=== PATIENT | male | born 1960 | race Caucasian/White ===

== ENCOUNTER → 2016-05-02 | Outpatient (CLI) | payer OTHER ==
--- NOTE | 2016-05-02 11:50 | XR ---
Bilateral hands HISTORY: Bilateral hand pain 3 views of the left and 3 views of the right hand submitted on a total of 6 images No comparisons Erosive changes are present at the distal interphalangeal joints especially second and third digits o f the right hand, left hand second and third, fifth digits with associated joint space loss and hyper trophic change. Degenerative changes also present at the proximal interphalangeal joints. Alignment a nd bone mineralization are relatively maintained. IMPRESSION: Findings suggest erosive osteoarthritis.
[2016-05-02 12:02] LABS: Basophils % (A) 1 %; CH 31.8; CHCM 34.5; Eosinophils # (A) 0.1 k/uL (0-0.7); Eosinophils % (A) 2 %; HCT 42.4 % (39.0-53.0); HDW 2.56; HGB 14.3 gm/dL (13.0-17.5); Luc # (Auto) 0.13; Luc % (Auto) 2; Lymphocytes # (A) 1.4 k/uL (1.0-4.8); Lymphocytes % (A) 22 %; MCH 31.3 pg (25.0-35.0); MCHC 33.7 g/dL (31.0-37.0); MCV 92.7 fL (80.0-100.0); Mean Platelet Volume 7.6; Monocytes # (A) 0.4 k/uL (0-1.0); Monocytes % (A) 7 %; Neutrophils # (A) 4.2 k/uL (1.3-7.7); Neutrophils % (A) 66 %; RBC 4.58 m/uL (4.30-5.90); RDW 13.2 % (11.5-15.5); WBC 6.3 k/uL (3.8-10.6); WBC (Perox) 6.69
[2016-05-02 14:14] LABS: C Reactive Protein 5.7 mg/L (<10.0); Creatine Kinase 70 U/L (55-170); Rheumatoid Factor, Qnt <9 IU/mL (<12); Uric Acid 5.1 mg/dL (3.5-8.5)
[2016-05-02 14:35] LABS: Erythrocyte Sedimentation Rate 8 mm/hr (0-15)
[2016-05-02 21:25] LABS: ANA w/Reflex to Titer POSITIVE (NEGATIVE)
== END | disposition home or self-care (01) ==
LOC: LABWHC1 11:05
PROVIDERS: ATTEND Psychiatry & Neurology Pain Medicine
DX: M25.541 Pain in joints of right hand (principal); M25.542 Pain in joints of left hand
CPT/HCPCS: 36415; 82550; 84550; 85025; 85652; 86038; 86039; 86140; 86225; 86334; 86431

== ENCOUNTER → 2016-06-13 | Outpatient (CLI) | payer OTHER ==
[2016-06-14 05:47] LABS: Cyclic Citrullinated Pep IgG 7 UNITS (<20)
== END | disposition home or self-care (01) ==
LOC: LABWHC1 10:10
PROVIDERS: ATTEND Psychiatry & Neurology Pain Medicine
DX: M15.4 Erosive (osteo)arthritis (principal)
CPT/HCPCS: 36415; 86200; 86235

== ENCOUNTER 2016-06-26 00:19 | Observation (INO) | payer OTHER ==
[2016-06-26] MEDS ORDERED: NITROGLYCERIN OINT 1 INCH/GM PACKET TOPICAL STA (00:54)
[2016-06-26] MEDS ORDERED: ASPIRIN 81 MG CHEW PO STA (00:54)
--- NOTE | 2016-06-26 00:58 | ED ---
Chest Pain HPI - General Chief Complaint: Chest Pain Stated Complaint: JACQUELYN Time Seen by Provider: 06/26/16 00:47 Source: patient, family, RN notes reviewed Mode of arrival: EMS Limitations: no limitations - History of Present Illness Initial Comments: Patient is a pleasant 55-year-old male presenting to emergency department complaining of chest discomfort. Onset of symptoms was a few hours ago. Patient has discomfort in his lower chest. Patient does have some associated dyspnea and nausea and diaphoresis. Symptoms have led up and are mild at this time rated 3/10. Patient was recently at [facility] with cardiac evaluation. There was a question of heart failure. did have a reported clean heart cath. Patient states symptoms are somewhat similar. - Related Data Allergies Allergy/AdvReac Type Severity Reaction Status Date / Time Penicillins Allergy Rash/Hives Verified 06/26/16 00:35 Review of Systems ROS Statement: Those systems with pertinent positive or pertinent negative responses have been documented in the HPI. ROS Other: All systems not noted in ROS Statement are negative. Constitutional: Denies: fever Eyes: Denies: eye pain ENT: Denies: ear pain Respiratory: Reports: dyspnea. Denies: cough Cardiovascular: Reports: chest pain Endocrine: Reports: fatigue Gastrointestinal: Denies: abdominal pain Genitourinary: Denies: dysuria Musculoskeletal: Denies: back pain Skin: Denies: rash Neurological: Denies: weakness EKG Findings - EKG Comments: EKG Findings:: Normal sinus rhythm at 86. WV 1:30. QRS 82. QT 376. QTc 449. Normal axis. Nonspecific junctional ST depression. Normal QRS. Past Medical History Past Medical History: Hyperlipidemia, Hypertension History of Any Multi-Drug Resistant Organisms: None Reported Past Psychological History: No Psychological Hx Reported Smoking Status: Never smoker Past Alcohol Use History: Occasional Past Drug Use History: None Reported General Exam Limitations: no limitations General appearance: alert, in no apparent distress Head exam: Present: atraumatic Eye exam: Present: normal appearance, PERRL ENT exam: Present: normal oropharynx Neck exam: Present: normal inspection Respiratory exam: Present: normal lung sounds bilaterally Cardiovascular Exam: Present: regular rate, normal rhythm Expanded Peripheral pulses: 2+: Radial (R), Radial (L), Dorsalis Pedis (R), Dorsalis Pedis (L) GI/Abdominal exam: Present: soft. Absent: tenderness Extremities exam: Present: normal inspection Neurological exam: Present: alert Psychiatric exam: Present: normal affect, normal mood Skin exam: Absent: rash Course Vital Signs 06/26/16 06/26/16 00:30 01:11 Temperature 99.1 F Pulse Rate 86 78 Respiratory 20 20 Rate Blood Pressure 164/90 141/80 O2 Sat by Pulse 100 100 Oximetry - Reevaluation(s) Reevaluation #1: 06/26/16 02:39 Chest x-ray shows no acute process. Computed tomography scan will be ordered secondary to elevation of d-dimer. Patient updated on results and plan. Case discussed in detail with practitioner assistant cross country coach, who will admit for Dr. Tiwari, covering for Dr. Bunn. Patient states he is somewhat further improved. Disposition Clinical Impression: Unstable angina pectoris Disposition: ADMITTED IP TO THIS HOSP
[2016-06-26 01:07] LABS: Basophils # (A) 0.1 k/uL (0-0.2); Basophils % (A) 1 %; CH 32.6; CHCM 35.6; Eosinophils # (A) 0.2 k/uL (0-0.7); Eosinophils % (A) 3 %; HCT 39.4 % (39.0-53.0); HDW 2.66; HGB 13.8 gm/dL (13.0-17.5); Luc # (Auto) 0.32; Luc % (Auto) 4; Lymphocytes # (A) 2.2 k/uL (1.0-4.8); Lymphocytes % (A) 27 %; MCH 32.1 pg (25.0-35.0); MCHC 34.9 g/dL (31.0-37.0); MCV 92.1 fL (80.0-100.0); Mean Platelet Volume 8.4; Monocytes # (A) 0.5 k/uL (0-1.0); Monocytes % (A) 6 %; Neutrophils # (A) 4.9 k/uL (1.3-7.7); Neutrophils % (A) 61 %; RBC 4.28 m/uL (4.30-5.90); RDW 13.1 % (11.5-15.5); WBC 8.1 k/uL (3.8-10.6); WBC (Perox) 8.27
[2016-06-26 01:18] LABS: ALT 37 U/L (21-72); AST 23 U/L (17-59); Alkaline Phosphatase 56 U/L (38-126); Anion Gap 14 mmol/L; Blood Urea Nitrogen 14 mg/dL (9-20); Calcium 9.8 mg/dL (8.4-10.2); Carbon Dioxide 22 mmol/L (22-30); Chloride 104 mmol/L (98-107); Glucose 118 mg/dL (74-99); Magnesium 2.1 mg/dL (1.6-2.3); Non-African American GFR(MDRD) >60 (>60 ml/min/1.73 sqM); Potassium 3.9 mmol/L (3.5-5.1); Sodium 140 mmol/L (137-145); Total Bilirubin 0.9 mg/dL (0.2-1.3); Total Protein 7.4 g/dL (6.3-8.2)
[2016-06-26 01:22] LABS: Partial Thromboplastin Time 25.5 sec (22.0-30.0); Prothrombin Time 10.4 sec (9.0-12.0)
[2016-06-26 01:41] LABS: Creatine Kinase MB 0.3 ng/mL (0.0-2.4); Troponin I 0.014 ng/mL (0.000-0.034)
--- NOTE | 2016-06-26 02:04 | XR ---
EXAM: XR Chest, 2 Views. CLINICAL HISTORY: Reason: Chest Pain TECHNIQUE: Frontal and lateral views of the chest. COMPARISON: No relevant prior studies available. FINDINGS: Lungs: Lungs are clear. Pleural space: Unremarkable. No pneumothorax. Heart: Unremarkable. No cardiomegaly. Mediastinum: Unremarkable. Bones/joints: Unremarkable. IMPRESSION: No evidence of active chest disease.
[2016-06-26] MEDS ORDERED: HEPARIN SODIUM,PORCINE 5,000 UNIT/ML 1 ML VIAL IV ONE (02:40)
[2016-06-26] MEDS ORDERED: HEPARIN SODIUM,PORCINE 5,000 UNIT/ML 1 ML VIAL IV PRN (02:40)
[2016-06-26] MEDS ORDERED: RX INFO: IV CONTRAST WAS GIVEN 1 EACH MISC MISCELLANE PRN (02:40)
[2016-06-26] MEDS ORDERED: NITROGLYCERIN SL TABS 0.4 MG TAB SUBLINGUAL PRN (02:40)
[2016-06-26] MEDS ORDERED: HEPARIN SODIUM,PORCINE/D5W PMX 25,000 UNIT in DEXTROSE/WATER 1 500ML.BAG IV SCH (02:45)
[2016-06-26 04:37] VITALS: BMI 19.2
--- NOTE | 2016-06-26 05:12 | CT ---
EXAM: CT Angiography Chest With Intravenous Contrast. CLINICAL HISTORY: Reason: pe protocol TECHNIQUE: Axial computed tomographic angiography images of the chest with intravenous contrast using pulmonary embolism protocol. CTDI is 57.2 mGy and DLP is 154.2 mGy-cm MIP reconstructed images were created and reviewed. COMPARISON: Chest radiographs 06/26/2016 FINDINGS: Pulmonary arteries: No evidence of pulmonary thromboembolic disease. No evidence of thoracic aortic aneurysm or dissection. Aorta: See above. Lungs: Lungs are clear without focal pulmonary infiltrates or consolidations. Pleural space: No evidence of pleural effusion. No pneumothorax. Heart: Heart size and mediastinal structures are within normal limits. No significant pericardial effusion. No evidence of RV dysfunction. Mediastinum: Probable small hiatal hernia. Soft tissues: Unremarkable. Lymph nodes: Unremarkable. No enlarged lymph nodes. Upper abdomen: Images including upper abdomen are unremarkable. IMPRESSION: No evidence of pulmonary thromboembolic disease. No acute cardiopulmonary process. Probable small hiatal hernia.
[2016-06-26] MEDS: NITROGLYCERIN OINT 1 INCH/GM PACKET TOPICAL SCH ×2 (06:21→11:46)
[2016-06-26 07:46] VITALS: RESP 18
[2016-06-26 08:13] LABS: Mean Platelet Volume 8.1
[2016-06-26 08:35] LABS: Creatine Kinase 34 U/L (55-170)
[2016-06-26 08:49] LABS: Creatine Kinase MB <0.2 ng/mL (0.0-2.4); Troponin I <0.012 ng/mL (0.000-0.034)
[2016-06-26] MEDS ORDERED: IBUPROFEN 400 MG TAB PO PRN (10:34)
[2016-06-26] MEDS ORDERED: METOPROLOL TARTRATE 25 MG TAB PO SCH (10:45)
--- NOTE | 2016-06-26 11:14 | CONS ---
DATE OF CONSULTATION: Mr. Bach is a 55-year-old gentleman, came to the emergency room with the complaint of chest discomfort. Patient started having symptoms about few hours ago prior to coming to the emergency room. The pain was in the lower part of the chest. The patient was associated with slight sweaty and weakness. Patient was recently admitted to the [facility] with symptoms of chest discomfort and palpitations. Patient underwent cardiac catheterization and he was told that he did not have any blockage, but he was told that his heart muscle was weak. Past medical history includes recent cardiac catheterization, hypertension, hyperlipidemia. SOCIAL HISTORY: Patient does not smoke. Alcohol, patient usually has 2 to 3 drinks per day. Review of systems is otherwise unremarkable. Physical examination at present reveals a 55-year-old gentleman who does not appear to be in any acute distress. Patient's blood pressure is 100/63 mmHg. HEENT examination is negative. Neck is supple. There is no increase in jugular venous pressure. Both the carotid pulses are felt. There is no bruit. Chest is symmetrical. HEART: The PMI is not felt. First and second heart sounds are normal. There is no evidence of any murmur. Lungs are clinically clear to auscultation and percussion. Abdomen is soft. Liver and spleen are not enlarged. Bowel sounds are heard. EXTREMITIES: Peripheral pulsations are 2+. EKG shows normal sinus rhythm without any acute ischemic changes. CT of the chest was negative. Patient's proBNP level is 57 and tropes are negative. FINAL IMPRESSION: 1. Atypical anginal pain. 2. History of hyperlipidemia. 3. Hypertension. 4. Recent cardiac catheterization is normal. RECOMMENDATIONS: Continue symptomatic medical therapy. We will do echo and Doppler study. Discontinue heparin and if the echo and Doppler study is normal, patient can be discharged home.
[2016-06-26 11:50] VITALS: BP 125/80; PULSE 87; TEMP 98.6
[2016-06-26] MEDS ORDERED: BACLOFEN 10 MG TAB PO SCH (13:00)
[2016-06-26 13:16] LABS: Creatine Kinase 34 U/L (55-170)
[2016-06-26 13:29] LABS: Creatine Kinase MB <0.2 ng/mL (0.0-2.4); Troponin I <0.012 ng/mL (0.000-0.034)
--- NOTE | 2016-06-26 19:45 | HP ---
DATE OF ADMISSION: THIS DICTATION IS BOTH HP AND DISCHARGE SUMMARY. Patient comes in with chest pressure like sensation which started yesterday after food. Patient had a recent cardiac catheterization for pressure like sensation along with some lightheadedness. Patient had this cardiac catheterization down in [facility] and they did not find any significant stentable atherosclerotic vascular disease. Patient was evaluated by Cardiology. Patient's chest pain is 3/10, constant, pressure like sensation, started after food. Patient had CT angio which did not show any pulmonary embolism or embolic process. Patient appears to have significant episodes of anxiety with palpitations. Patient symptoms are consistent with anxiety. Patient believes ( ) although patient is also found to have hiatal hernia and patient complains of retrosternal pain started after eating food. Because of which I cannot rule out gastroesophageal reflux disease. Because of which I will start him on empiric proton pump inhibitor for 15 days and patient will be discharged. Patient was evaluated by Cardiology and cleared from Cardiology perspective. REVIEW OF SYSTEMS: CONSTITUTIONAL: No fever, no malaise, no fatigue. HEENT: No recent visual problems or hearing problems. Denied any sore throat. CARDIOVASCULAR: As described in HPI. PULMONARY: No shortness of breath, no cough, no hemoptysis. GASTROINTESTINAL: As described HPI. NEUROLOGICAL: No headaches, no weakness, no numbness. HEMATOLOGICAL: Denies any bleeding or petechiae. GENITOURINARY: Denies any burning micturition, frequency, or urgency. MUSCULOSKELETAL/RHEUMATOLOGICAL: Denies any joint pain, swelling, or any muscle pain. ENDOCRINE: Denies any polyuria or polydipsia. The rest of the 14 point review of systems is negative. PAST MEDICAL HISTORY: Hypertension, hyperlipidemia. SOCIAL HISTORY: Denied any smoking, alcohol abuse or any drug abuse. FAMILY HISTORY: Denied any family history of premature coronary artery disease. PHYSICAL EXAMINATION: Temperature 99.1, pulse 78, respiratory rate 16, blood pressure 141/80, saturating at 100% on room air. GENERAL: The patient is alert and oriented x3, not in any acute distress. Well developed, well nourished. HEENT: Pupils are round and equally reacting to light. EOMI. No scleral icterus. No conjunctival pallor. Normocephalic, atraumatic. No pharyngeal erythema. No thyromegaly. CARDIOVASCULAR: S1 and S2 present. No murmurs, rubs, or gallops. PULMONARY: Chest is clear to auscultation, no wheezing or crackles. ABDOMEN: Soft, nontender, nondistended, normoactive bowel sounds. No palpable organomegaly. MUSCULOSKELETAL: No joint swelling or deformity. EXTREMITIES: No cyanosis, clubbing, or pedal edema. NEUROLOGICAL: Gross neurological examination did not reveal any focal deficits. SKIN: No rashes. LABORATORY DATA: CBC and CMP essentially within normal limits. CT angio of the chest as mentioned above. ASSESSMENT AND PLAN: 1. Chest pain, rule out acute coronary syndrome and unstable angina. Patient had a recent cardiac catheterization. Chest pain is mostly related to his anxiety disorder. I will let him follow with Dr. Fermin and address anxiety issue there. I cannot rule out gastroesophageal reflux disease because of the above mentioned reasons. I will go ahead and start him on Prilosec empirically for 14 days and patient will be discharged today. 2. Hyperlipidemia. 3. Hypertension. Patient will be discharged today with 14 days of Prilosec. Follow with Dr. Fermin in 3 to 5 days. Activity as tolerated. Cardiac diet. The rest of the home medications will be continued as it is.
[2016-06-26] MEDS ORDERED: ATORVASTATIN 10 MG TAB PO SCH (21:00)
[2016-06-27] MEDS ORDERED: ASPIRIN 325 MG TAB PO SCH ×2 (09:00)
[2016-06-27] MEDS ORDERED: ASPIRIN 81 MG CHEW PO SCH (09:00)
--- NOTE | 2016-06-27 09:36 | ECHOF ---
Referral Reason:chest pain MEASUREMENTS -------- HEIGHT: 175.3 cm WEIGHT: 59.0 kg BP: RVIDd: 2.4 cm (< 3.3) IVSd: 0.7 cm (0.6 - 1.1) LVIDd: 5.7 cm (3.9 - 5.3) LVPWd: 0.9 cm (0.6 - 1.1) IVSs: 1.1 cm LVIDs: 3.6 cm LVPWs: 1.1 cm LA Diam: 3.1 cm (2.7 - 3.8) LAESV Index (A-L): 25.76 ml/m Ao Diam: 2.8 cm (2.0 - 3.7) AV Cusp: 1.8 cm (1.5 - 2.6) LA Diam: 3.3 cm (2.7 - 3.8) MV EXCURSION: 20.954 mm (> 18.000) MV EF SLOPE: 139 mm/s (70 - 150) EPSS: 0.2 cm MV E Jan: 0.51 m/s MV DecT: 232 ms MV A Jan: 0.66 m/s MV E/A Ratio: 0.77 RAP: 5.00 mmHg RVSP: 20.47 mmHg FINDINGS -------- Sinus rhythm. This was a technically good study. LV size, wall thickness and systolic function are normal, with an EF greater than 55%. The right ventricle is normal in size. Normal LA size by volume 22+/-6 ml/m2. The right atrial size is normal. There is mild aortic valve sclerosis. There is no evidence of aortic regurgitation. Mild mitral annular calcification present. Mild mitral regurgitation is present. Mild tricuspid regurgitation present. There is no evidence of pulmonary hypertension. The right ventricular systolic pressure, as measured by Doppler, is 20.47mmHg. There is no pulmonic regurgitation present. The aortic root size is normal. There is no pericardial effusion. CONCLUSIONS -------- 1. LV size, wall thickness and systolic function are normal, with an EF greater than 55%. 2. There is mild aortic valve sclerosis. 3. Mild mitral annular calcification present. 4. Mild mitral regurgitation is present. 5. Mild tricuspid regurgitation present. 6. There is no evidence of pulmonary hypertension. 7. The right ventricular systolic pressure, as measured by Doppler, is 20.47mmHg. INDUSTRY OPERATIONS INVESTIGATOR: Gloria Wren RDCS
[2016-07-03] MEDS ORDERED: ERGOCALCIFEROL 50,000 UNIT CAP PO SCH (09:00)
== END 2016-06-26 15:35 | disposition home or self-care (01) ==
LOC: EC 00:19 → 3OBS 02:40
PROVIDERS: ADMIT Hospitalist; ATTEND Hospitalist
DX: R07.89 Other chest pain (principal); E78.5 Hyperlipidemia, unspecified; I10 Essential (primary) hypertension; F41.9 Anxiety disorder, unspecified; K44.9 Diaphragmatic hernia without obstruction or gangrene; R42 Dizziness and giddiness; R00.2 Palpitations; R53.1 Weakness; R61 Generalized hyperhidrosis; R06.00 Dyspnea, unspecified; R11.0 Nausea; Z88.0 Allergy status to penicillin
CPT/HCPCS: 36415; 93005; 93306; 85379; 83880; 80053; 82550; 82553; 83735; 84484; 85025; 85049; 85610; 85730; 71020; 71275; 99285; 96365; 96376; G0378; J1644 ×2; Q9967; 96366

== ENCOUNTER 2016-06-29 09:37 | Emergency (ER) | payer OTHER ==
[2016-06-29 09:52] VITALS: BP 109/54; PULSE 66; RESP 20; TEMP 97.6
--- NOTE | 2016-06-29 10:07 | ED ---
Upper Extremity HPI - General Chief Complaint: Extremity Injury, Upper Stated Complaint: POST OP PROBLEM, LUMP ON ARM AFTER CATH Source: patient Mode of arrival: ambulatory Limitations: no limitations - History of Present Illness Initial Comments: Patient is a pleasant 55-year-old male who presents for evaluation after he developed a bump on his right wrist after hitting it on a wooden table. Past medical history as below. Patient is concerned because he recently had a right radial artery heart catheterization at an outside facility roughly 6 days ago. He was told to come to the emergency department immediately if there is any swelling to the access site. Patient stated that he hit his right wrist ( lateral aspect) on a wooden table. This occurred roughly 30 minutes prior to arrival. His full range of motion to the right wrist. He noticed that it swelled up quite quickly but is otherwise seems stable since the injury. States that he is otherwise doing well. He recently followed up with a primary care physician and has new medications addressing his anxiety. He currently denies fever, chills, headache, changes in vision, URI symptoms, shortness breath, cough, chest pain, nausea, vomiting, diarrhea, pain or burning with urination. - Related Data Home Medications Medication Instructions Recorded Confirmed Aspirin [Adult Low Dose Aspirin EC] 81 mg PO DAILY 06/26/16 06/26/16 Atorvastatin [Lipitor] 10 mg PO HS 06/26/16 06/26/16 Baclofen [Lioresal] 10 mg PO QID 06/26/16 06/26/16 Ergocalciferol (Vitamin D2) 1 cap PO WEEKLY 06/26/16 06/26/16 [Vitamin D2] Ketoprofen [Orudis] 50 mg PO TID PRN 06/26/16 06/26/16 Metoprolol Tartrate [Lopressor] 25 mg PO BID 06/26/16 06/26/16 Previous Rx's Medication Instructions Recorded Omeprazole [PriLOSEC] 40 mg PO -BRKFST #14 capsule. 06/26/16 Allergies Allergy/AdvReac Type Severity Reaction Status Date / Time Penicillins Allergy Rash/Hives Verified 06/29/16 09:51 Review of Systems ROS Statement: Those systems with pertinent positive or pertinent negative responses have been documented in the HPI. ROS Other: All systems not noted in ROS Statement are negative. Past Medical History Past Medical History: Heart Failure, Hyperlipidemia, Hypertension Additional Past Medical History / Comment(s): tobi hand arthritis requiring pain injections, hemmorhoids History of Any Multi-Drug Resistant Organisms: None Reported Past Surgical History: Heart Catheterization Additional Past Surgical History / Comment(s): hemmroidectomy Past Anesthesia/Blood Transfusion Reactions: No Reported Reaction Past Psychological History: Anxiety Smoking Status: Never smoker Past Alcohol Use History: Occasional Past Drug Use History: None Reported - Past Family History Father Additional Family Medical History / Comment(s): parkinsons General Exam Limitations: no limitations General appearance: alert, in no apparent distress Head exam: Present: atraumatic, normocephalic, normal inspection Eye exam: Present: normal appearance, PERRL, EOMI. Absent: scleral icterus, conjunctival injection, periorbital swelling ENT exam: Present: normal exam, mucous membranes moist Neck exam: Present: normal inspection. Absent: tenderness, meningismus, lymphadenopathy Respiratory exam: Present: normal lung sounds bilaterally. Absent: respiratory distress, wheezes, rales, rhonchi, stridor Cardiovascular Exam: Present: regular rate, normal rhythm, normal heart sounds, other (Distal radial pulse intact with palpation. Good cap refill of his right hand. There is a soft tissue mass lateral to the radial artery puncture site. There is no bruit auscultated over this soft tissue mass. It is relatively firm and nonfluctuant. No overlying cellulitis or laceration or abrasion.). Absent: systolic murmur, diastolic murmur, rubs, gallop, clicks GI/Abdominal exam: Present: soft, normal bowel sounds. Absent: distended, tenderness, guarding, rebound, rigid Extremities exam: Present: normal inspection, full ROM, normal capillary refill. Absent: tenderness, pedal edema, joint swelling, calf tenderness Back exam: Present: normal inspection Neurological exam: Present: alert, oriented X3, CN II-XII intact Psychiatric exam: Present: normal affect, normal mood Skin exam: Present: warm, dry, intact, normal color. Absent: rash Course Vital Signs 06/29/16 09:47 Temperature 97.6 F Pulse Rate 66 Respiratory 20 Rate Blood Pressure 109/54 O2 Sat by Pulse 99 Oximetry Medical Decision Making - Medical Decision Making Patient is a 55-year-old male who presents for evaluation after soft tissue swelling after trauma to his right wrist. Concerned because he had a recent heart catheterization at the right radial site. We'll order an ultrasound arterial to the right extremity to exclude aneurysm. 1102: Arterial ultrasound of the right upper extremity revealed no pseudoaneurysm at the site of soft tissue swelling. Noted to be a limited study. Stable for discharge home and follow-up with his multimedia manager/primary care physician in the next 24 hours. Encourage the patient watch the swelling closely. Will return immediately if he noticed that it is significantly worsening swelling, numbness or tingling to his fingertips or hands. Otherwise will take Tylenol Motrin as needed for pain. Icing to the affected area. He is comfortable with discharge home and will follow-up with his primary care physician and/or multimedia manager in the next 24 hours. Disposition Clinical Impression: Contusion of wrist, right Disposition: HOME SELF-CARE Condition: Good Instructions: Wrist Injury (ED) Referrals: Shmuel Fermin MD [Primary Care Provider] - 1-2 days
--- NOTE | 2016-06-29 10:49 | US ---
EXAMINATION TYPE: US duplex arterial venous darling DATE OF EXAM: 06/29/2016 10:30 AM COMPARISON: NONE CLINICAL HISTORY: Pain. Patient had a radial approach cauterization done a6 days ago and has a red ra ised area lateral right wrist. Order states concern for pseudoaneurysm. Grayscale, color Doppler, spectral Doppler imaging performed at the site of patient's palpable abnorm ality, symptomatology TECHNOLOGIST IMPRESSION: Scanned right wrist, right radial artery and red raised lump on the right l ateral wrist. Radial artery is patent, there is no ultrasound evidence for pseudoaneurysm. There is no fluid collection seen over red raised area. Normal vascular waveforms, triphasic waveform within the radial artery, superior aneurysm is not evid ent. Soft tissue swelling is present. No evident abnormal fluid collection. IMPRESSION: Limited exam for evaluation of pseudoaneurysm. No pseudoaneurysm is evident at the site of patient's symptomatology.
== END 2016-06-29 11:12 | disposition home or self-care (01) ==
LOC: EC 09:37
DX: S60.211A Contusion of right wrist, initial encounter (principal); M79.89 Other specified soft tissue disorders; E78.5 Hyperlipidemia, unspecified; I11.0 Hypertensive heart disease with heart failure; I50.9 Heart failure, unspecified; Z98.890 Other specified postprocedural states; Z88.0 Allergy status to penicillin; Z79.82 Long term (current) use of aspirin; Z79.899 Other long term (current) drug therapy; W22.8XXA Striking against or struck by other objects, initial encounter
CPT/HCPCS: 93976; 99283

== ENCOUNTER 2016-06-30 12:45 | Emergency (ER) | payer OTHER ==
[2016-06-30 12:53] VITALS: RESP 18
[2016-06-30] MEDS ORDERED: ASPIRIN 81 MG CHEW PO STA (12:59)
--- NOTE | 2016-06-30 13:03 | ED ---
Dizziness HPI - General Chief Complaint: Dizziness Stated Complaint: Chest pain Time Seen by Provider: 06/30/16 12:47 Source: patient, EMS Mode of arrival: EMS Limitations: no limitations - History of Present Illness Initial Comments: Patient is a 55-year-old male presenting with dizziness. Patient states he woke up this morning with this uneasy feeling. Patient denies lightheadedness, disequilibrium. Denies symptoms worsen with head movement or position changes. Patient weighs of chest tightness which has been present for more than a week now. Patient states he had a cardiac cath last week which was unremarkable. Patient states he went to [facility] having a unremarkable cardiac cath. Patient states he was diagnosed with unstable angina. Patient denies fever, chills, stress breath, nausea, vomiting, diarrhea, abdominal pain, dysuria. Patient denies trouble talking or swallowing. Patient denies any numbness or weakness. - Related Data Home Medications Medication Instructions Recorded Confirmed Aspirin [Adult Low Dose Aspirin EC] 81 mg PO DAILY 06/26/16 06/30/16 Atorvastatin [Lipitor] 10 mg PO HS 06/26/16 06/30/16 Baclofen [Lioresal] 10 mg PO QID 06/26/16 06/30/16 Metoprolol Tartrate [Lopressor] 25 mg PO BID 06/26/16 06/30/16 cloNIDine HCL [Catapres] 0.1 mg PO BID 06/30/16 06/30/16 Previous Rx's Medication Instructions Recorded Omeprazole [PriLOSEC] 40 mg PO AC-BRKFST #14 capsule. 06/26/16 Allergies Allergy/AdvReac Type Severity Reaction Status Date / Time Penicillins Allergy Rash/Hives Verified 06/30/16 14:41 Review of Systems ROS Statement: Those systems with pertinent positive or pertinent negative responses have been documented in the HPI. Constitutional: No fever and no chills. HENT: No congestion, no rhinorrhea and no sore throat. Eyes: No discharge and no redness. Respiratory: No cough and no shortness of breath. Cardiovascular: +chest pain and no palpitations. Gastrointestinal: No nausea, no vomiting, no abdominal pain and no diarrhea. Genitourinary: No dysuria and no hematuria. Musculoskeletal: No back pain and no arthralgias. Skin: No pallor and no rash. Neurological: +dizziness and No headaches. ROS Other: All systems not noted in ROS Statement are negative. Past Medical History Past Medical History: Heart Failure, Hyperlipidemia, Hypertension Additional Past Medical History / Comment(s): tobi hand arthritis requiring pain injections, hemmorhoids History of Any Multi-Drug Resistant Organisms: None Reported Past Surgical History: Heart Catheterization Additional Past Surgical History / Comment(s): hemmroidectomy Past Anesthesia/Blood Transfusion Reactions: No Reported Reaction Past Psychological History: Anxiety Smoking Status: Never smoker Past Alcohol Use History: Heavy Past Drug Use History: Marijuana - Past Family History Father Additional Family Medical History / Comment(s): parkinsons General Exam - General Exam Comments Initial Comments: Constitutional: Patient appears well-developed and well-nourished. No distress. Anxious appearing. Head: Normocephalic and atraumatic. Eyes: Conjunctivae and EOM are normal. Right eye exhibits no discharge. Left eye exhibits no discharge. No scleral icterus. Neck: Normal range of motion. Neck supple. Cardiovascular: Normal rate and regular rhythm. No murmur heard. Pulmonary/Chest: Effort normal and breath sounds normal. No respiratory distress. No wheezes. Abdominal: Soft. No distension. There is no tenderness. There is no rebound and no guarding. Musculoskeletal: Right wrist bruising and puncture from cardiac cath. Normal range of motion. No edema or tenderness. Neuro Exam: A&Ox3, speech is fluent and spontaneous CN 2: no visual field deficits, PERRL CN 3, 4, 6: EOMI CN 5: facial sensation intact b/l CN 7: Eyebrow raise and smile equal b/l CN 8: hearing intact to conversation CN 9, 10: palate elevation equal, no hoarseness to voice CN 11: shoulder shrug equal b/l CN 12: tongue protrusion w/o deviation Sensory: Intact to light touch, upper and lower extremities Motor: No pronator drift, no atrophy, normal muscle tone, b/l muscle strength 5/ 5 of hand flexors, biceps, triceps, quads, hamstrings, plantar and dorsiflexion Cerebellar: finger to nose intact b/l, heel to [place] intact b/l. Skin: Skin is warm and dry. Not diaphoretic. Nursing notes and vitals reviewed. Limitations: no limitations Course Vital Signs 06/30/16 06/30/16 06/30/16 12:50 15:35 16:49 Temperature 99.0 F 98.4 F Pulse Rate 66 56 L 59 L Respiratory 18 18 18 Rate Blood Pressure 143/91 101/72 132/80 O2 Sat by Pulse 99 99 99 Oximetry - Reevaluation(s) Reevaluation #1: 06/30/16 16:38 Patient resting comfortable in bed. After negative workup. Patient with positive d-dimer but later realized that patient had a negative CTA 4 days ago. Unlikely dizziness related to PE. EKG Findings - EKG Comments: EKG Findings:: Rate 54. Sinus bradycardia. No ST-T wave changes. [place] internal normal . QRS interval normal. QTc duration normal. Medical Decision Making - Medical Decision Making Patient is a 55-year-old male presenting was generalized dizziness and fatigue. Patient with chronic chest pain. Patient with multiple stressors in his life wondering if he should talk to a counselor. Patient with normal exam including neurological exam. EKG shows a sinus bradycardia with a rate of 54. CBC, BMP unremarkable. D-dimer was elevated at 1.59 but later study shows that 4 days prior he had a CTA. UA unremarkable. Chest x-ray unremarkable. Patient updated results and reassured. Patient stable to follow up outpatient with his PCP. Prior to discharge, patient was resting comfortably in bed. Course of stay improved. Denies pain. Discussed physical exam and diagnostic tests with patient. Questions answered and patient is agreeable to discharge with close follow up with Primary Care Physician. Instructed to return to Emergency Department if symptoms worsen. - Lab Data Result diagrams: 06/30/16 13:04 06/30/16 13:04 Lab Results 06/30/16 06/30/16 06/30/16 Range/Units 13:04 13:04 13:04 WBC 9.3 (3.8-10.6) k/uL RBC 4.46 (4.30-5.90) m/uL Hgb 13.9 (13.0-17.5) gm/dL Hct 41.3 (39.0-53.0) % MCV 92.6 (80.0-100.0) fL MCH 31.2 (25.0-35.0) pg MCHC 33.7 (31.0-37.0) g/dL RDW 13.2 (11.5-15.5) % Plt Count 199 (150-450) k/uL Neutrophils % 75 % Lymphocytes % 16 % Monocytes % 5 % Eosinophils % 2 % Basophils % 1 % Neutrophils # 7.0 (1.3-7.7) k/uL Lymphocytes # 1.5 (1.0-4.8) k/uL Monocytes # 0.4 (0-1.0) k/uL Eosinophils # 0.2 (0-0.7) k/uL Basophils # 0.0 (0-0.2) k/uL PT (9.0-12.0) sec INR (<1.1) APTT (22.0-30.0) sec D-Dimer (<0.60) mg/L FEU Sodium 142 (137-145) mmol/L Potassium 4.1 (3.5-5.1) mmol/L Chloride 103 (98-107) mmol/L Carbon Dioxide 26 (22-30) mmol/L Anion Gap 13 mmol/L BUN 14 (9-20) mg/dL Creatinine 0.92 (0.66-1.25) mg/dL Est GFR (MDRD) Af Amer >60 (>60 ml/min/1.73 sqM) Est GFR (MDRD) Non-Af >60 (>60 ml/min/1.73 sqM) Glucose 100 H (74-99) mg/dL Calcium 9.9 (8.4-10.2) mg/dL Magnesium 2.1 (1.6-2.3) mg/dL Total Bilirubin 0.8 (0.2-1.3) mg/dL AST 17 (17-59) U/L ALT 27 (21-72) U/L Alkaline Phosphatase 48 (38-126) U/L Troponin I (0.000-0.034) ng/mL Total Protein 7.4 (6.3-8.2) g/dL Albumin 4.4 (3.5-5.0) g/dL Lipase 140 (23-300) U/L Urine Color Urine Appearance (Clear) Urine pH (5.0-8.0) Ur Specific [place] (1.001-1.035) Urine Protein (Negative) Urine Glucose (UA) (Negative) Urine Ketones (Negative) Urine Blood (Negative) Urine Nitrite (Negative) Urine Bilirubin (Negative) Urine Urobilinogen (<2.0) mg/dL Ur Leukocyte Esterase (Negative) Urine RBC (0-5) /hpf Urine WBC (0-5) /hpf Urine Bacteria (None) /hpf Urine Mucus (None) /hpf Urine Opiates Screen (NotDetected) Ur Oxycodone Screen (NotDetected) Urine Methadone Screen (NotDetected) Ur Propoxyphene Screen (NotDetected) Ur Barbiturates Screen (NotDetected) U Tricyclic Antidepress (NotDetected) Ur Phencyclidine Scrn (NotDetected) Ur Amphetamines Screen (NotDetected) U Methamphetamines Scrn (NotDetected) U Benzodiazepines Scrn (NotDetected) Urine Cocaine Screen (NotDetected) U Marijuana (THC) Screen (NotDetected) 06/30/16 06/30/16 06/30/16 Range/Units 13:04 13:04 13:04 WBC (3.8-10.6) k/uL RBC (4.30-5.90) m/uL Hgb (13.0-17.5) gm/dL Hct (39.0-53.0) % MCV (80.0-100.0) fL MCH (25.0-35.0) pg MCHC (31.0-37.0) g/dL RDW (11.5-15.5) % Plt Count (150-450) k/uL Neutrophils % % Lymphocytes % % Monocytes % % Eosinophils % % Basophils % % Neutrophils # (1.3-7.7) k/uL Lymphocytes # (1.0-4.8) k/uL Monocytes # (0-1.0) k/uL Eosinophils # (0-0.7) k/uL Basophils # (0-0.2) k/uL PT 10.7 (9.0-12.0) sec INR 1.1 (<1.1) APTT 25.1 (22.0-30.0) sec D-Dimer 1.59 H (<0.60) mg/L FEU Sodium (137-145) mmol/L Potassium (3.5-5.1) mmol/L Chloride (98-107) mmol/L Carbon Dioxide (22-30) mmol/L Anion Gap mmol/L BUN (9-20) mg/dL Creatinine (0.66-1.25) mg/dL Est GFR (MDRD) Af Amer (>60 ml/min/1.73 sqM) Est GFR (MDRD) Non-Af (>60 ml/min/1.73 sqM) Glucose (74-99) mg/dL Calcium (8.4-10.2) mg/dL Magnesium (1.6-2.3) mg/dL Total Bilirubin (0.2-1.3) mg/dL AST (17-59) U/L ALT (21-72) U/L Alkaline Phosphatase (38-126) U/L Troponin I <0.012 (0.000-0.034) ng/mL Total Protein (6.3-8.2) g/dL Albumin (3.5-5.0) g/dL Lipase (23-300) U/L Urine Color Urine Appearance (Clear) Urine pH (5.0-8.0) Ur Specific [place] (1.001-1.035) Urine Protein (Negative) Urine Glucose (UA) (Negative) Urine Ketones (Negative) Urine Blood (Negative) Urine Nitrite (Negative) Urine Bilirubin (Negative) Urine Urobilinogen (<2.0) mg/dL Ur Leukocyte Esterase (Negative) Urine RBC (0-5) /hpf Urine WBC (0-5) /hpf Urine Bacteria (None) /hpf Urine Mucus (None) /hpf Urine Opiates Screen (NotDetected) Ur Oxycodone Screen (NotDetected) Urine Methadone Screen (NotDetected) Ur Propoxyphene Screen (NotDetected) Ur Barbiturates Screen (NotDetected) U Tricyclic Antidepress (NotDetected) Ur Phencyclidine Scrn (NotDetected) Ur Amphetamines Screen (NotDetected) U Methamphetamines Scrn (NotDetected) U Benzodiazepines Scrn (NotDetected) Urine Cocaine Screen (NotDetected) U Marijuana (THC) Screen (NotDetected) 06/30/16 Range/Units 15:32 WBC (3.8-10.6) k/uL RBC (4.30-5.90) m/uL Hgb (13.0-17.5) gm/dL Hct (39.0-53.0) % MCV (80.0-100.0) fL MCH (25.0-35.0) pg MCHC (31.0-37.0) g/dL RDW (11.5-15.5) % Plt Count (150-450) k/uL Neutrophils % % Lymphocytes % % Monocytes % % Eosinophils % % Basophils % % Neutrophils # (1.3-7.7) k/uL Lymphocytes # (1.0-4.8) k/uL Monocytes # (0-1.0) k/uL Eosinophils # (0-0.7) k/uL Basophils # (0-0.2) k/uL PT (9.0-12.0) sec INR (<1.1) APTT (22.0-30.0) sec D-Dimer (<0.60) mg/L FEU Sodium (137-145) mmol/L Potassium (3.5-5.1) mmol/L Chloride (98-107) mmol/L Carbon Dioxide (22-30) mmol/L Anion Gap mmol/L BUN (9-20) mg/dL Creatinine (0.66-1.25) mg/dL Est GFR (MDRD) Af Amer (>60 ml/min/1.73 sqM) Est GFR (MDRD) Non-Af (>60 ml/min/1.73 sqM) Glucose (74-99) mg/dL Calcium (8.4-10.2) mg/dL Magnesium (1.6-2.3) mg/dL Total Bilirubin (0.2-1.3) mg/dL AST (17-59) U/L ALT (21-72) U/L Alkaline Phosphatase (38-126) U/L Troponin I (0.000-0.034) ng/mL Total Protein (6.3-8.2) g/dL Albumin (3.5-5.0) g/dL Lipase (23-300) U/L Urine Color Yellow Urine Appearance Clear (Clear) Urine pH 6.5 (5.0-8.0) Ur Specific [place] 1.012 (1.001-1.035) Urine Protein Negative (Negative) Urine Glucose (UA) Negative (Negative) Urine Ketones Trace H (Negative) Urine Blood Trace H (Negative) Urine Nitrite Negative (Negative) Urine Bilirubin Negative (Negative) Urine Urobilinogen <2.0 (<2.0) mg/dL Ur Leukocyte Esterase Negative (Negative) Urine RBC 4 (0-5) /hpf Urine WBC <1 (0-5) /hpf Urine Bacteria Rare H (None) /hpf Urine Mucus Rare H (None) /hpf Urine Opiates Screen Not Detected (NotDetected) Ur Oxycodone Screen Not Detected (NotDetected) Urine Methadone Screen Not Detected (NotDetected) Ur Propoxyphene Screen Not Detected (NotDetected) Ur Barbiturates Screen Not Detected (NotDetected) U Tricyclic Antidepress Not Detected (NotDetected) Ur Phencyclidine Scrn Not Detected (NotDetected) Ur Amphetamines Screen Not Detected (NotDetected) U Methamphetamines Scrn Not Detected (NotDetected) U Benzodiazepines Scrn Not Detected (NotDetected) Urine Cocaine Screen Not Detected (NotDetected) U Marijuana (THC) Screen Detected H (NotDetected) Disposition Clinical Impression: Dizziness, Mood disorder, Chest pain Disposition: HOME SELF-CARE Condition: Good Instructions: Dizziness (ED) Referrals: Shmuel Fermin MD [Primary Care Provider] - 1-2 days
[2016-06-30 13:19] LABS: Basophils % (A) 1 %; CH 32.2; Eosinophils # (A) 0.2 k/uL (0-0.7); Eosinophils % (A) 2 %; HCT 41.3 % (39.0-53.0); HDW 2.62; HGB 13.9 gm/dL (13.0-17.5); Luc # (Auto) 0.19; Luc % (Auto) 2; Lymphocytes # (A) 1.5 k/uL (1.0-4.8); Lymphocytes % (A) 16 %; MCH 31.2 pg (25.0-35.0); MCHC 33.7 g/dL (31.0-37.0); MCV 92.6 fL (80.0-100.0); Mean Platelet Volume 7.5; Monocytes # (A) 0.4 k/uL (0-1.0); Monocytes % (A) 5 %; Neutrophils % (A) 75 %; RBC 4.46 m/uL (4.30-5.90); RDW 13.2 % (11.5-15.5); WBC 9.3 k/uL (3.8-10.6); WBC (Perox) 9.58
[2016-06-30 13:27] LABS: INR 1.1 (<1.1); Prothrombin Time 10.7 sec (9.0-12.0)
[2016-06-30 13:28] LABS: Partial Thromboplastin Time 25.1 sec (22.0-30.0)
[2016-06-30 13:29] LABS: ALT 27 U/L (21-72); AST 17 U/L (17-59); Alkaline Phosphatase 48 U/L (38-126); Anion Gap 13 mmol/L; Blood Urea Nitrogen 14 mg/dL (9-20); Calcium 9.9 mg/dL (8.4-10.2); Carbon Dioxide 26 mmol/L (22-30); Chloride 103 mmol/L (98-107); Glucose 100 mg/dL (74-99); Non-African American GFR(MDRD) >60 (>60 ml/min/1.73 sqM); Potassium 4.1 mmol/L (3.5-5.1); Sodium 142 mmol/L (137-145); Total Bilirubin 0.8 mg/dL (0.2-1.3); Total Protein 7.4 g/dL (6.3-8.2)
--- NOTE | 2016-06-30 14:48 | XR ---
EXAMINATION TYPE: XR chest 1V portable DATE OF EXAM: 06/30/2016 2:37 PM COMPARISON: Chest x-ray and CTA chest report from 4 days ago. HISTORY: Chest pain. TECHNIQUE: Single AP portable frontal upright view of the chest is obtained. FINDINGS: There is no focal air space opacity, pleural effusion, or pneumothorax seen. The cardiac silhouette size is within normal limits. The osseous structures are intact. IMPRESSION: No acute process. No significant change from prior.
[2016-06-30 15:49] LABS: Appearance,Urine Clear (Clear); Bacteria,Urine Rare /hpf; Bilirubin,Urine Negative (Negative); Glucose,Urine (UA) Negative (Negative); Ketones,Urine Trace (Negative); Leukocyte Esterase,Urine Negative (Negative); Mucus,Urine Rare /hpf; Nitrite,Urine Negative (Negative); PH, Urine 6.5 (5.0-8.0); Particle Count 815; Protein,Urine Negative (Negative); RBC,Urine 4 /hpf (0-5); Specific Gravity,Urine 1.012 (1.001-1.035); UA Billing (MACRO vs. MICRO) MICRO; Urobilinogen,Urine <2.0 mg/dL (<2.0); WBC,Urine <1 /hpf (0-5)
[2016-06-30] MEDS ORDERED: RX INFO: IV CONTRAST WAS GIVEN 1 EACH MISC MISCELLANE PRN (16:08)
[2016-06-30 16:52] VITALS: BP 132/80; PULSE 59; TEMP 98.4
== END 2016-06-30 16:49 | disposition home or self-care (01) ==
LOC: EC 12:45
DX: R42 Dizziness and giddiness (principal); R07.9 Chest pain, unspecified; G89.29 Other chronic pain; F39 Unspecified mood [affective] disorder; R00.1 Bradycardia, unspecified; I11.0 Hypertensive heart disease with heart failure; I50.9 Heart failure, unspecified; E78.5 Hyperlipidemia, unspecified; Z88.0 Allergy status to penicillin; Z98.890 Other specified postprocedural states; Z79.82 Long term (current) use of aspirin; Z79.899 Other long term (current) drug therapy
CPT/HCPCS: 36415; 71010; 80053; 80306; 81001; 83690; 83735; 84484; 85025; 85379; 85610; 85730; 93005; 99285

== ENCOUNTER 2016-07-15 13:39 | Emergency (ER) | payer OTHER ==
--- NOTE | 2016-07-15 15:56 | ED ---
General Adult HPI - General Chief complaint: Chest Pain Stated complaint: Mental Health Time Seen by Provider: 07/15/16 15:17 Source: patient, RN notes reviewed Mode of arrival: ambulatory Limitations: no limitations - History of Present Illness Initial comments: Patient is 55-year-old male who presents emergency room today with a chief complaint of chest pain. Patient does admit that he was out walking approximately 4 hours ago when he began experiencing some chest discomfort. He does admit that he has a history of angina has a chronic amount of chest pain but was increased. He states it lasted approximately 20-30 minutes. States she 's been sitting here in the emergency room waiting in the waiting room fell asleep. States he is feeling better has no chest pain at this time other than his usual chronic pain. Does admit that he was seen here in the hospital and admitted approximately 3 weeks ago for similar symptoms and had seen cardiology for this. Patient does admit that he was discharged home with a diagnosis of angina, anxiety, episodic mood disorder. He states he started medications. He states he was taking Ativan 1 pill 1 mg for 10 days. He states this seemed to help the symptoms. He states he run out of this medication over the last 4 days. He states it has been more stressful the last 4 days with his girlfriend recently admitted to the hospital in the critical care unit. Patient denies any other complaints or symptoms currently. Patient denies any recent fever, chills, back pain, abdominal pain, nausea or vomiting, numbness or tingling, dysuria or hematuria, constipation or diarrhea, headaches or visual changes, or any other complaints. - Related Data Home Medications Medication Instructions Recorded Confirmed Aspirin [Adult Low Dose Aspirin EC] 81 mg PO DAILY 06/26/16 07/15/16 Atorvastatin [Lipitor] 10 mg PO HS 06/26/16 07/15/16 Baclofen [Lioresal] 10 mg PO QID 06/26/16 07/15/16 Metoprolol Tartrate [Lopressor] 25 mg PO BID 06/26/16 07/15/16 cloNIDine HCL [Catapres] 0.1 mg PO BID 06/30/16 07/15/16 LORazepam [Ativan] 1 mg PO BID PRN 07/15/16 07/15/16 Previous Rx's Medication Instructions Recorded Omeprazole [PriLOSEC] 40 mg PO -BRKFST #14 capsule. 06/26/16 LORazepam [Ativan] 1 mg PO BID #6 tab 07/15/16 Allergies Allergy/AdvReac Type Severity Reaction Status Date / Time Penicillins Allergy Rash/Hives Verified 07/15/16 16:10 Review of Systems ROS Statement: Those systems with pertinent positive or pertinent negative responses have been documented in the HPI. ROS Other: All systems not noted in ROS Statement are negative. Past Medical History Past Medical History: Heart Failure, Hyperlipidemia, Hypertension Additional Past Medical History / Comment(s): tobi hand arthritis requiring pain injections, hemmorhoids History of Any Multi-Drug Resistant Organisms: None Reported Past Surgical History: Heart Catheterization Additional Past Surgical History / Comment(s): hemmroidectomy Past Anesthesia/Blood Transfusion Reactions: No Reported Reaction Past Psychological History: Anxiety Smoking Status: Never smoker Past Alcohol Use History: None Reported Past Drug Use History: Marijuana - Past Family History Father Additional Family Medical History / Comment(s): parkinsons General Exam - General Exam Comments Initial Comments: General: The patient is awake and alert, in no distress, and does not appear acutely ill. Eye: Pupils are equal, round and reactive to light, extra-ocular movements are intact. No nystagmus. There is normal conjunctiva bilaterally. No signs of icterus. Ears, nose, mouth and throat: There are moist mucous membranes and no oral lesions. Neck: The neck is supple, there is no tenderness or JVD. Cardiovascular: There is a regular rate and rhythm. No murmur, rub or gallop is appreciated. Respiratory: Lungs are clear to auscultation, respirations are non-labored, breath sounds are equal. No wheezes, stridor, rales, or rhonchi. Gastrointestinal: Soft, non-distended, non-tender abdomen without masses or organomegaly noted. There is no rebound or guarding present. No CVA tenderness. Bowel sounds are unremarkable. Musculoskeletal: Normal ROM, no tenderness. Strength 5/5. Sensation intact. Pulses equal bilaterally 2+. Neurological: A&O x 3. CN II-XII intact, There are no obvious motor or sensory deficits. Coordination appears grossly intact. Speech is normal. Skin: Skin is warm and dry and no rashes or lesions are noted. Psychiatric: Cooperative, appropriate mood & affect, normal judgment. Limitations: no limitations Course Vital Signs 07/15/16 07/15/16 13:46 17:07 Temperature 97.5 F L 97.2 F L Pulse Rate 78 68 Respiratory 18 18 Rate Blood Pressure 127/88 104/62 O2 Sat by Pulse 99 99 Oximetry EKG Findings - EKG Comments: EKG Findings:: EKG performed at 1402: A 12-lead EKG was performed and interpreted by me as showing the following: Rate is 62, and rhythm is normal sinus. There are normal QRS complexes and normal R-wave progression. ST segments have no elevation or depression, and IA segments appear normal. Medical Decision Making - Medical Decision Making Patient reexamined at this time shows no signs of distress. His EKG shows normal sinus rhythm. His labs been reviewed and negative cardiac enzymes. Patient did have recent admission to the hospital just 3 weeks ago with her cough and echocardiogram. Patient states she does have an appointment with cardiology in 2 days. Options were discussed with patient permission today for further evaluation. He states that at this time" being discharged home. She will be given a short prescription of Ativan for symptoms. He is advised return to emergency room symptoms increase or worsen - Lab Data Result diagrams: 07/15/16 15:40 07/15/16 15:40 Lab Results 07/15/16 07/15/16 07/15/16 Range/Units 15:40 15:40 15:40 WBC 10.1 (3.8-10.6) k/uL RBC 4.41 (4.30-5.90) m/uL Hgb 14.1 (13.0-17.5) gm/dL Hct 39.4 (39.0-53.0) % MCV 89.5 (80.0-100.0) fL MCH 32.1 (25.0-35.0) pg MCHC 35.9 (31.0-37.0) g/dL RDW 13.0 (11.5-15.5) % Plt Count 172 (150-450) k/uL Neutrophils % 76 % Lymphocytes % 15 % Monocytes % 5 % Eosinophils % 1 % Basophils % 0 % Neutrophils # 7.6 (1.3-7.7) k/uL Lymphocytes # 1.6 (1.0-4.8) k/uL Monocytes # 0.5 (0-1.0) k/uL Eosinophils # 0.1 (0-0.7) k/uL Basophils # 0.0 (0-0.2) k/uL PT (9.0-12.0) sec INR (<1.1) APTT (22.0-30.0) sec Sodium 143 (137-145) mmol/L Potassium 4.3 (3.5-5.1) mmol/L Chloride 104 (98-107) mmol/L Carbon Dioxide 27 (22-30) mmol/L Anion Gap 12 mmol/L BUN 14 (9-20) mg/dL Creatinine 0.80 (0.66-1.25) mg/dL Est GFR (MDRD) Af Amer >60 (>60 ml/min/1.73 sqM) Est GFR (MDRD) Non-Af >60 (>60 ml/min/1.73 sqM) Glucose 124 H (74-99) mg/dL Calcium 9.7 (8.4-10.2) mg/dL Magnesium 1.9 (1.6-2.3) mg/dL Total Bilirubin 0.9 (0.2-1.3) mg/dL AST 26 (17-59) U/L ALT 42 (21-72) U/L Alkaline Phosphatase 50 (38-126) U/L Total Creatine Kinase 32 L (55-170) U/L CK-MB (CK-2) 0.3 (0.0-2.4) ng/mL CK-MB (CK-2) Rel Index 0.9 Troponin I <0.012 (0.000-0.034) ng/mL Total Protein 7.7 (6.3-8.2) g/dL Albumin 4.7 (3.5-5.0) g/dL 07/15/16 Range/Units 15:40 WBC (3.8-10.6) k/uL RBC (4.30-5.90) m/uL Hgb (13.0-17.5) gm/dL Hct (39.0-53.0) % MCV (80.0-100.0) fL MCH (25.0-35.0) pg MCHC (31.0-37.0) g/dL RDW (11.5-15.5) % Plt Count (150-450) k/uL Neutrophils % % Lymphocytes % % Monocytes % % Eosinophils % % Basophils % % Neutrophils # (1.3-7.7) k/uL Lymphocytes # (1.0-4.8) k/uL Monocytes # (0-1.0) k/uL Eosinophils # (0-0.7) k/uL Basophils # (0-0.2) k/uL PT 10.4 (9.0-12.0) sec INR 1.0 (<1.1) APTT 26.3 (22.0-30.0) sec Sodium (137-145) mmol/L Potassium (3.5-5.1) mmol/L Chloride (98-107) mmol/L Carbon Dioxide (22-30) mmol/L Anion Gap mmol/L BUN (9-20) mg/dL Creatinine (0.66-1.25) mg/dL Est GFR (MDRD) Af Amer (>60 ml/min/1.73 sqM) Est GFR (MDRD) Non-Af (>60 ml/min/1.73 sqM) Glucose (74-99) mg/dL Calcium (8.4-10.2) mg/dL Magnesium (1.6-2.3) mg/dL Total Bilirubin (0.2-1.3) mg/dL AST (17-59) U/L ALT (21-72) U/L Alkaline Phosphatase (38-126) U/L Total Creatine Kinase (55-170) U/L CK-MB (CK-2) (0.0-2.4) ng/mL CK-MB (CK-2) Rel Index Troponin I (0.000-0.034) ng/mL Total Protein (6.3-8.2) g/dL Albumin (3.5-5.0) g/dL Disposition Clinical Impression: Unstable angina pectoris, Chest pain Disposition: HOME SELF-CARE Condition: Good Instructions: Chest Pain (ED) Additional Instructions: 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 Please use medication as prescribed and return here to emergency room if any symptoms increase or worsen or for any other concerns. Prescriptions: LORazepam [Ativan] 1 mg PO BID #6 tab Time of Disposition: 17:12
--- NOTE | 2016-07-15 16:01 | XR ---
EXAMINATION TYPE: XR chest 2V DATE OF EXAM: 07/15/2016 3:58 PM COMPARISON: 06/30/2016 TECHNIQUE: PA and lateral views submitted. HISTORY: Chest pain FINDINGS: The lungs are clear and there is no pneumothorax, pleural effusion, or focal pneumonia. Hyperinflat ion suggests COPD. IMPRESSION: 1. No acute process.
[2016-07-15 16:02] LABS: Basophils % (A) 0 %; CHCM 35.9; Eosinophils # (A) 0.1 k/uL (0-0.7); Eosinophils % (A) 1 %; HCT 39.4 % (39.0-53.0); HDW 2.73; HGB 14.1 gm/dL (13.0-17.5); Luc # (Auto) 0.18; Luc % (Auto) 2; Lymphocytes # (A) 1.6 k/uL (1.0-4.8); Lymphocytes % (A) 15 %; MCH 32.1 pg (25.0-35.0); MCHC 35.9 g/dL (31.0-37.0); MCV 89.5 fL (80.0-100.0); Mean Platelet Volume 7.5; Monocytes # (A) 0.5 k/uL (0-1.0); Monocytes % (A) 5 %; Neutrophils # (A) 7.6 k/uL (1.3-7.7); Neutrophils % (A) 76 %; RBC 4.41 m/uL (4.30-5.90); WBC 10.1 k/uL (3.8-10.6)
[2016-07-15 16:10] LABS: Partial Thromboplastin Time 26.3 sec (22.0-30.0); Prothrombin Time 10.4 sec (9.0-12.0)
[2016-07-15 16:15] LABS: ALT 42 U/L (21-72); AST 26 U/L (17-59); Alkaline Phosphatase 50 U/L (38-126); Anion Gap 12 mmol/L; Blood Urea Nitrogen 14 mg/dL (9-20); Calcium 9.7 mg/dL (8.4-10.2); Carbon Dioxide 27 mmol/L (22-30); Chloride 104 mmol/L (98-107); Glucose 124 mg/dL (74-99); Magnesium 1.9 mg/dL (1.6-2.3); Non-African American GFR(MDRD) >60 (>60 ml/min/1.73 sqM); Potassium 4.3 mmol/L (3.5-5.1); Sodium 143 mmol/L (137-145); Total Bilirubin 0.9 mg/dL (0.2-1.3); Total Protein 7.7 g/dL (6.3-8.2)
[2016-07-15 16:22] LABS: Creatine Kinase 32 U/L (55-170)
[2016-07-15 16:36] LABS: Creatine Kinase MB 0.3 ng/mL (0.0-2.4); Troponin I <0.012 ng/mL (0.000-0.034)
[2016-07-15 17:49] VITALS: BP 114/78; PULSE 67; RESP 16; TEMP 97.5
== END 2016-07-15 17:48 | disposition home or self-care (01) ==
LOC: EC 13:39
DX: I20.0 Unstable angina (principal); F41.9 Anxiety disorder, unspecified; I50.9 Heart failure, unspecified; E78.5 Hyperlipidemia, unspecified; I10 Essential (primary) hypertension; M19.042 Primary osteoarthritis, left hand; M19.041 Primary osteoarthritis, right hand; Z95.5 Presence of coronary angioplasty implant and graft; Z79.82 Long term (current) use of aspirin; Z88.0 Allergy status to penicillin; Z79.899 Other long term (current) drug therapy
CPT/HCPCS: 36415; 71020; 80053; 82550; 82553; 83735; 84484; 84550; 85025; 85610; 85652; 85730; 86140; 86235; 93005; 99285

== ENCOUNTER → 2016-07-15 | Outpatient (CLI) | payer OTHER ==
[2016-07-15 09:53] LABS: Basophils # (A) 0.1 k/uL (0-0.2); Basophils % (A) 1 %; CHCM 34.1; Eosinophils # (A) 0.1 k/uL (0-0.7); Eosinophils % (A) 2 %; HCT 38.3 % (39.0-53.0); HDW 2.67; HGB 12.9 gm/dL (13.0-17.5); Luc # (Auto) 0.16; Luc % (Auto) 2; Lymphocytes # (A) 1.6 k/uL (1.0-4.8); Lymphocytes % (A) 21 %; MCH 31.8 pg (25.0-35.0); MCHC 33.7 g/dL (31.0-37.0); MCV 94.2 fL (80.0-100.0); Mean Platelet Volume 7.5; Monocytes # (A) 0.4 k/uL (0-1.0); Monocytes % (A) 5 %; Neutrophils # (A) 5.1 k/uL (1.3-7.7); Neutrophils % (A) 69 %; RBC 4.07 m/uL (4.30-5.90); WBC 7.4 k/uL (3.8-10.6); WBC (Perox) 7.66
[2016-07-15 10:17] LABS: C Reactive Protein <5.0 mg/L (<10.0); Uric Acid 4.4 mg/dL (3.5-8.5)
[2016-07-15 12:19] LABS: Erythrocyte Sedimentation Rate 8 mm/hr (0-15)
== END ==
LOC: LABWHC1 08:54
PROVIDERS: ATTEND Psychiatry & Neurology Pain Medicine
DX: M10.9 Gout, unspecified (principal); M25.50 Pain in unspecified joint
CPT/HCPCS: 36415; 84550; 85025; 85652; 86140; 86235

== ENCOUNTER → 2016-08-01 | Outpatient (CLI) | payer OTHER ==
--- NOTE | 2016-08-01 16:05 | US ---
EXAMINATION TYPE: US abdomen limited DATE OF EXAM: 08/01/2016 3:40 PM COMPARISON: NONE CLINICAL HISTORY: 55-year-old male R07.9 Chest Pain. RUQ pain, NPO for 8 hours TECHNIQUE: Multiple sonographic images of the right upper quadrant are obtained. FINDINGS: Liver Length: 17.3 cm Gallbladder Wall: 0.1 cm CHD: 0.4 cm Right Kidney: 8.5 x 4.9 x 4.1 cm Pancreas: Suboptimal visualization of the pancreatic tail secondary to shadowing from bowel gas. Vis ualized portions show no gross abnormality. Main pancreatic duct is slightly prominent at 1 to 2 mm b ut still within normal limits. Liver: Upper limits of normal in size without focal lesion. Gallbladder: There is a junctional fold. Also, there is a tiny 2 x 1 mm echogenic focus along the po sterior gallbladder wall near the body neck junction. No abnormal distention, wall thickening, perich olecystic fluid, or shadowing calculi. Evidence for sonographic Bailey's sign: neg CHD: Within normal limits Right Kidney: No hydronephrosis IMPRESSION: 1. Borderline hepatomegaly. No focal liver lesion. 2. Tiny 2 mm echogenic focus along the posterior gallbladder wall suspected to represent a tiny polyp . This could be reassessed at 6-12 months.
== END ==
LOC: RADUSWWP 15:01
PROVIDERS: ATTEND Internal Medicine Cardiovascular Disease
DX: R10.11 Right upper quadrant pain (principal); R16.0 Hepatomegaly, not elsewhere classified
CPT/HCPCS: 76705

== ENCOUNTER 2016-08-10 08:15 | Emergency (ER) | payer OTHER ==
--- NOTE | 2016-08-10 09:20 | ED ---
General Adult HPI - General Chief complaint: Extremity Injury, Upper Stated complaint: swelling in rt hand Time Seen by Provider: 08/10/16 08:34 Source: patient, RN notes reviewed Mode of arrival: ambulatory Limitations: no limitations - History of Present Illness Initial comments: Patient is a 55-year-old male presents to the emergency room for evaluation of right hand swelling. Patient states he noticed swelling around 1 AM this morning. Patient denies any trauma or injury to his hand. Patient denies any pain. Patient states his hand feels uncomfortable because of the swelling. Patient states he recently began taking naproxen 2 days ago. Patient is not sure if he is having a reaction to the naproxen. Patient denies numbness or tingling in his fingers. Patient does state he has a history of arthritis. Patient does admit he was bit by a spider or insect about 2 weeks ago at the same hand. Patient states he noticed some redness but no pain. Patient denies fevers or chills. Patient denies any other complaints. - Related Data Home Medications Medication Instructions Recorded Confirmed Aspirin [Adult Low Dose Aspirin EC] 81 mg PO DAILY 06/26/16 08/10/16 Atorvastatin [Lipitor] 10 mg PO HS 06/26/16 08/10/16 Baclofen [Lioresal] 10 mg PO QID 06/26/16 08/10/16 Metoprolol Tartrate [Lopressor] 25 mg PO BID 06/26/16 08/10/16 cloNIDine HCL [Catapres] 0.1 mg PO BID 06/30/16 08/10/16 Ergocalciferol [Vitamin D2 50,000 units PO FR 08/10/16 08/10/16 (DRISDALVINA)] LORazepam [Ativan] 0.5 mg PO BID PRN 08/10/16 08/10/16 Naproxen 500 mg PO Q12HR 08/10/16 08/10/16 Previous Rx's Medication Instructions Recorded Omeprazole [PriLOSEC] 40 mg PO AC-BRKFST #14 capsule. 06/26/16 Cephalexin [Keflex] 500 mg PO Q6HR 7 Days 08/10/16 Allergies Allergy/AdvReac Type Severity Reaction Status Date / Time Penicillins Allergy Rash/Hives Verified 08/10/16 08:50 Review of Systems ROS Statement: Those systems with pertinent positive or pertinent negative responses have been documented in the HPI. ROS Other: All systems not noted in ROS Statement are negative. Past Medical History Past Medical History: Heart Failure, Hyperlipidemia, Hypertension Additional Past Medical History / Comment(s): tobi hand arthritis requiring pain injections, hemmorhoids History of Any Multi-Drug Resistant Organisms: None Reported Past Surgical History: Heart Catheterization Additional Past Surgical History / Comment(s): hemmroidectomy Past Anesthesia/Blood Transfusion Reactions: No Reported Reaction Past Psychological History: Anxiety Smoking Status: Never smoker Past Alcohol Use History: None Reported Past Drug Use History: Marijuana - Past Family History Father Additional Family Medical History / Comment(s): parkinsons General Exam - General Exam Comments Initial Comments: Sitting in exam room, no acute distress. Limitations: no limitations General appearance: alert, in no apparent distress Head exam: Present: atraumatic, normocephalic, normal inspection Eye exam: Present: normal appearance ENT exam: Present: normal exam Neck exam: Present: normal inspection Respiratory exam: Present: normal lung sounds bilaterally. Absent: respiratory distress Cardiovascular Exam: Present: regular rate, normal rhythm, normal heart sounds Right Hand Wrist exam: Present: full ROM, swelling. Absent: tenderness, erythema Neuro motor exam: Present: wrist extension intact, thumb opposition intact, thumb IP flexion intact, thumb adduction intact, fingers 2-5 abduction intact Vascular: Present: normal capillary refill (Capillary refill less than 2 seconds ), radial pulse (2+), ulnar pulse (2+) Back exam: Present: normal inspection Neurological exam: Present: alert, oriented X3, CN II-XII intact, normal gait Psychiatric exam: Present: normal affect, normal mood Skin exam: Present: warm, dry, intact, normal color. Absent: rash Course Vital Signs 08/10/16 08/10/16 08/10/16 08:21 10:21 11:22 Temperature 98.2 F 98.1 F 97.9 F Pulse Rate 53 L 51 L 52 L Respiratory 18 18 16 Rate Blood Pressure 105/62 108/70 117/74 O2 Sat by Pulse 98 98 98 Oximetry 08/10/16 11:42 Temperature 97.9 F Pulse Rate 52 L Respiratory 16 Rate Blood Pressure 117/74 O2 Sat by Pulse 98 Oximetry Medical Decision Making - Medical Decision Making Patient is a 55-year-old male presents emergency room for evaluation of right hand swelling. Patient has no signs of erythema or heat. Patient states he was bit by a spider or insect about [address] patient on Keflex prophylactically. Advised patient to follow up with primary care provider for reevaluation of hand swelling. Patient denies any pain. Patient denies fevers or chills. Patient has no neuro deficits. Patient states eh understands everyting that was discussed with him. Return parameters discussed. Case discussed with Dr. Perez. - Radiology Data Radiology results: report reviewed, image reviewed Disposition Clinical Impression: Swelling of right hand Disposition: HOME SELF-CARE Condition: Good Instructions: Swollen Joint (ED) Additional Instructions: Take antibiotics as directed. Please follow up with primary care provider in 1- 2 days. If any new symptom arises or symptoms worsen, return to ER as soon as possible. Prescriptions: Cephalexin [Keflex] 500 mg PO Q6HR 7 Days Referrals: Romaine Del Rosario MD [Primary Care Provider] - 1-2 days Time of Disposition: 10:59
--- NOTE | 2016-08-10 09:47 | XR ---
EXAMINATION TYPE: XR hand complete RT DATE OF EXAM: 08/10/2016 9:41 AM CLINICAL HISTORY: Right hand swelling and pain. TECHNIQUE: Frontal, lateral and oblique images of the right hand are obtained. COMPARISON: Bilateral hand x-ray May 02, 2016 FINDINGS: There is no acute fracture/dislocation evident in the right hand. There is joint space los s with marginal spurring throughout the phalanges most pronounced in the DIP joints of second third a nd fifth fingers redemonstrated. Some involvement of PIP joints is seen. MCP joints are maintained. Osseous structures are somewhat demineralized. The overlying soft tissue appears unremarkable. IMPRESSION: There is no acute fracture or dislocation in the right hand. No significant change from prior.
[2016-08-10 11:23] VITALS: BP 117/74; PULSE 52; RESP 16; TEMP 97.9
== END 2016-08-10 11:42 | disposition home or self-care (01) ==
LOC: EC 08:15
DX: M79.89 Other specified soft tissue disorders (principal); M19.041 Primary osteoarthritis, right hand; M19.042 Primary osteoarthritis, left hand; I11.0 Hypertensive heart disease with heart failure; I50.9 Heart failure, unspecified; E78.5 Hyperlipidemia, unspecified; Z95.5 Presence of coronary angioplasty implant and graft; Z88.0 Allergy status to penicillin; Z79.82 Long term (current) use of aspirin; Z79.899 Other long term (current) drug therapy
CPT/HCPCS: 99283

== ENCOUNTER 2017-06-11 11:21 | Inpatient (IN) | payer OTHER ==
[2017-06-11] MEDS ORDERED: NITROGLYCERIN SL TABS 0.4 MG TAB SUBLINGUAL STA ×3 (11:42)
[2017-06-11] MEDS ORDERED: ASPIRIN 81 MG PO STA (11:42)
--- NOTE | 2017-06-11 11:46 | ED ---
General Adult HPI - General Chief complaint: Chest Pain Stated complaint: Chest pain Time Seen by Provider: 06/11/17 11:39 Source: patient, EMS, RN notes reviewed Mode of arrival: EMS Limitations: no limitations - History of Present Illness Initial comments: Patient is a pleasant 56-year-old male presenting to the emergency department with complaints of chest discomfort. Patient has had symptoms intermittently over the past couple of days. Discomfort is currently rated 4/10. Discomfort feels like pressure. Patient does admit to having increased stress recently. Patient has had similar problems previously with increased stress. No associated dyspnea, nausea, or diaphoresis. No radiation. - Related Data Home Medications Medication Instructions Recorded Confirmed Aspirin [Adult Low Dose Aspirin EC] 81 mg PO DAILY 06/26/16 06/11/17 Atorvastatin [Lipitor] 10 mg PO HS 06/26/16 06/11/17 Baclofen [Lioresal] 10 mg PO QID 06/26/16 06/11/17 Metoprolol Tartrate [Lopressor] 25 mg PO BID 06/26/16 06/11/17 cloNIDine HCL [Catapres] 0.1 mg PO DAILY 06/30/16 06/11/17 Ergocalciferol [Vitamin D2 50,000 units PO Q30D 08/10/16 06/11/17 (DRISDOL)] LORazepam [Ativan] 0.5 mg PO BID PRN 08/10/16 06/11/17 Ranitidine HCl [Zantac] 150 mg PO BID 06/11/17 06/11/17 Previous Rx's Medication Instructions Recorded Omeprazole [PriLOSEC] 40 mg PO MITZY-BONGKFST #14 capsule. 06/26/16 Allergies Allergy/AdvReac Type Severity Reaction Status Date / Time Penicillins Allergy Rash/Hives Verified 06/11/17 11:49 Review of Systems ROS Statement: Those systems with pertinent positive or pertinent negative responses have been documented in the HPI. ROS Other: All systems not noted in ROS Statement are negative. Constitutional: Denies: fever Eyes: Denies: eye pain ENT: Denies: ear pain Respiratory: Denies: cough, dyspnea Cardiovascular: Reports: chest pain Endocrine: Denies: fatigue Gastrointestinal: Denies: abdominal pain Genitourinary: Denies: urgency Musculoskeletal: Denies: back pain Skin: Denies: rash Neurological: Denies: weakness Psychiatric: Reports: anxiety Past Medical History Past Medical History: Heart Failure, Hyperlipidemia, Hypertension Additional Past Medical History / Comment(s): tobi hand arthritis requiring pain injections, hemmorhoids History of Any Multi-Drug Resistant Organisms: None Reported Past Surgical History: Heart Catheterization Additional Past Surgical History / Comment(s): hemmroidectomy Past Anesthesia/Blood Transfusion Reactions: No Reported Reaction Past Psychological History: Anxiety Smoking Status: Never smoker Past Alcohol Use History: None Reported Past Drug Use History: Marijuana - Past Family History Father Additional Family Medical History / Comment(s): parkinsons General Exam Limitations: no limitations General appearance: alert, in no apparent distress Head exam: Present: atraumatic Eye exam: Present: normal appearance, PERRL ENT exam: Present: normal oropharynx Neck exam: Present: normal inspection Respiratory exam: Present: normal lung sounds bilaterally. Absent: chest wall tenderness Cardiovascular Exam: Present: regular rate, normal rhythm Expanded Peripheral pulses: 2+: Radial (R), Radial (L), Posterior Tibialis (R), Posterior Tibialis (L) GI/Abdominal exam: Present: soft. Absent: tenderness Rectal exam: Present: hemorrhoids Extremities exam: Present: normal inspection. Absent: pedal edema, calf tenderness Neurological exam: Present: alert Psychiatric exam: Present: normal affect, normal mood Skin exam: Present: normal color Course Vital Signs 06/11/17 06/11/17 06/11/17 11:22 11:50 11:54 Temperature 98.4 F Pulse Rate 77 75 Respiratory 18 18 Rate Blood Pressure 159/87 139/91 135/80 O2 Sat by Pulse 100 100 Oximetry 06/11/17 12:52 Temperature Pulse Rate 67 Respiratory 18 Rate Blood Pressure 125/67 O2 Sat by Pulse 100 Oximetry - Reevaluation(s) Reevaluation #1: 06/11/17 12:43 No stool with rectal exam there for unable to send for Hemoccult. EKG Findings - EKG Comments: EKG Findings:: Normal sinus rhythm 87. IA 152. QRS 104. QT 388. QTC 466. Normal axis. Low QRS. Borderline lateral ST depression. Medical Decision Making - Medical Decision Making Patient reevaluated and resting comfortably in bed. Symptom-free at this time. Case was discussed in detail with Dr. Del Rosario, who will admit his patient. He does not want any consults at this time until he sees the patient. - Lab Data Result diagrams: 06/11/17 11:30 06/11/17 11:30 Lab Results 06/11/17 06/11/17 06/11/17 Range/Units 11:30 11:30 11:30 WBC 6.1 (3.8-10.6) k/uL RBC 3.61 L (4.30-5.90) m/uL Hgb 7.3 L (13.0-17.5) gm/dL Hct 25.1 L (39.0-53.0) % MCV 69.5 L (80.0-100.0) fL MCH 20.2 L (25.0-35.0) pg MCHC 29.1 L (31.0-37.0) g/dL RDW 16.1 H (11.5-15.5) % Plt Count 192 (150-450) k/uL Neutrophils % 67 % Lymphocytes % 22 % Monocytes % 6 % Eosinophils % 1 % Basophils % 1 % Neutrophils # 4.1 (1.3-7.7) k/uL Lymphocytes # 1.4 (1.0-4.8) k/uL Monocytes # 0.4 (0-1.0) k/uL Eosinophils # 0.1 (0-0.7) k/uL Basophils # 0.0 (0-0.2) k/uL Hypochromasia Marked Poikilocytosis Slight Anisocytosis Slight Microcytosis Marked PT (9.0-12.0) sec INR (<1.2) APTT (22.0-30.0) sec Sodium 141 (137-145) mmol/L Potassium 4.4 (3.5-5.1) mmol/L Chloride 104 (98-107) mmol/L Carbon Dioxide 25 (22-30) mmol/L Anion Gap 12 mmol/L BUN 14 (9-20) mg/dL Creatinine 0.80 (0.66-1.25) mg/dL Est GFR (MDRD) Af Amer >60 (>60 ml/min/1.73 sqM) Est GFR (MDRD) Non-Af >60 (>60 ml/min/1.73 sqM) Glucose 118 H (74-99) mg/dL Calcium 9.1 (8.4-10.2) mg/dL Magnesium 1.9 (1.6-2.3) mg/dL Total Bilirubin 0.5 (0.2-1.3) mg/dL AST 23 (17-59) U/L ALT 27 (21-72) U/L Alkaline Phosphatase 58 (38-126) U/L Total Creatine Kinase 42 L (55-170) U/L CK-MB (CK-2) 0.2 (0.0-2.4) ng/mL CK-MB (CK-2) Rel Index 0.5 Troponin I <0.012 (0.000-0.034) ng/mL Total Protein 7.1 (6.3-8.2) g/dL Albumin 4.3 (3.5-5.0) g/dL 06/11/17 Range/Units 11:30 WBC (3.8-10.6) k/uL RBC (4.30-5.90) m/uL Hgb (13.0-17.5) gm/dL Hct (39.0-53.0) % MCV (80.0-100.0) fL MCH (25.0-35.0) pg MCHC (31.0-37.0) g/dL RDW (11.5-15.5) % Plt Count (150-450) k/uL Neutrophils % % Lymphocytes % % Monocytes % % Eosinophils % % Basophils % % Neutrophils # (1.3-7.7) k/uL Lymphocytes # (1.0-4.8) k/uL Monocytes # (0-1.0) k/uL Eosinophils # (0-0.7) k/uL Basophils # (0-0.2) k/uL Hypochromasia Poikilocytosis Anisocytosis Microcytosis PT 10.2 (9.0-12.0) sec INR 1.0 (<1.2) APTT 22.8 (22.0-30.0) sec Sodium (137-145) mmol/L Potassium (3.5-5.1) mmol/L Chloride (98-107) mmol/L Carbon Dioxide (22-30) mmol/L Anion Gap mmol/L BUN (9-20) mg/dL Creatinine (0.66-1.25) mg/dL Est GFR (MDRD) Af Amer (>60 ml/min/1.73 sqM) Est GFR (MDRD) Non-Af (>60 ml/min/1.73 sqM) Glucose (74-99) mg/dL Calcium (8.4-10.2) mg/dL Magnesium (1.6-2.3) mg/dL Total Bilirubin (0.2-1.3) mg/dL AST (17-59) U/L ALT (21-72) U/L Alkaline Phosphatase (38-126) U/L Total Creatine Kinase (55-170) U/L CK-MB (CK-2) (0.0-2.4) ng/mL CK-MB (CK-2) Rel Index Troponin I (0.000-0.034) ng/mL Total Protein (6.3-8.2) g/dL Albumin (3.5-5.0) g/dL - Radiology Data Radiology results: image reviewed (Chest x-ray shows no acute process.) Disposition Clinical Impression: Chest pain, Anemia Disposition: ADMITTED IP TO THIS [facility] Referrals: Romaine Del Rosario MD [Primary Care Provider] - 1-2 days Decision Time: 14:04
[2017-06-11 12:02] LABS: Anisocytosis Slight; Basophils % (A) 1 %; Eosinophils # (A) 0.1 k/uL (0-0.7); Eosinophils % (A) 1 %; HCT 25.1 % (39.0-53.0); HGB 7.3 gm/dL (13.0-17.5); Hypochromasia Marked; Lymphocytes # (A) 1.4 k/uL (1.0-4.8); Lymphocytes % (A) 22 %; MCH 20.2 pg (25.0-35.0); MCHC 29.1 g/dL (31.0-37.0); MCV 69.5 fL (80.0-100.0); Mean Platelet Volume 7.1; Microcytosis Marked; Monocytes # (A) 0.4 k/uL (0-1.0); Monocytes % (A) 6 %; Neutrophils # (A) 4.1 k/uL (1.3-7.7); Neutrophils % (A) 67 %; Platelet Count 192 k/uL (150-450); Poikilocytosis Slight; RBC 3.61 m/uL (4.30-5.90); RDW 16.1 % (11.5-15.5); WBC 6.1 k/uL (3.8-10.6)
[2017-06-11 12:13] LABS: Partial Thromboplastin Time 22.8 sec (22.0-30.0)
[2017-06-11 12:16] LABS: Prothrombin Time 10.2 sec (9.0-12.0)
--- NOTE | 2017-06-11 12:22 | XR ---
EXAMINATION TYPE: XR chest 2V DATE OF EXAM: 06/11/2017 COMPARISON: Chest x-ray July 15, 2016. HISTORY: History of angina with chest pain. TECHNIQUE: Frontal and lateral views of the chest are obtained. FINDINGS: There is some chronic parenchymal change without suspicious new focal air space opacity, p leural effusion, or pneumothorax seen. The cardiac silhouette size is within normal limits. Overlyin g EKG wires are present currently. The osseous structures are intact. IMPRESSION: No acute process. No significant change from prior.
[2017-06-11 12:26] LABS: ALT 27 U/L (21-72); AST 23 U/L (17-59); Albumin 4.3 g/dL (3.5-5.0); Alkaline Phosphatase 58 U/L (38-126); Anion Gap 12 mmol/L; Blood Urea Nitrogen 14 mg/dL (9-20); Calcium 9.1 mg/dL (8.4-10.2); Carbon Dioxide 25 mmol/L (22-30); Chloride 104 mmol/L (98-107); Glucose 118 mg/dL (74-99); Potassium 4.4 mmol/L (3.5-5.1); Sodium 141 mmol/L (137-145); Total Bilirubin 0.5 mg/dL (0.2-1.3); Total Protein 7.1 g/dL (6.3-8.2)
[2017-06-11 12:36] LABS: Creatine Kinase 42 U/L (55-170)
[2017-06-11 12:49] LABS: Creatine Kinase MB 0.2 ng/mL (0.0-2.4); Troponin I <0.012 ng/mL (0.000-0.034)
[2017-06-11] MEDS ORDERED: NITROGLYCERIN SL TABS 0.4 MG TAB SUBLINGUAL PRN (14:04)
[2017-06-11 15:15] VITALS: BMI 21.2
[2017-06-11 17:44] LABS: Creatine Kinase 37 U/L (55-170)
[2017-06-11 17:58] LABS: Creatine Kinase MB <0.2 ng/mL (0.0-2.4); Troponin I <0.012 ng/mL (0.000-0.034)
[2017-06-11] MEDS: BACLOFEN 10 MG TAB PO SCH ×2 (18:13→22:43)
[2017-06-11] MEDS: NITROGLYCERIN OINT 1 INCH/GM PACKET TOPICAL SCH (18:14)
[2017-06-11 21:19] LABS: Basophils # (A) 0.1 k/uL (0-0.2); Basophils % (A) 1 %; Eosinophils # (A) 0.1 k/uL (0-0.7); Eosinophils % (A) 2 %; HCT 24.4 % (39.0-53.0); Hypochromasia Marked; Lymphocytes # (A) 1.9 k/uL (1.0-4.8); Lymphocytes % (A) 34 %; MCH 19.9 pg (25.0-35.0); MCHC 27.3 g/dL (31.0-37.0); MCV 72.8 fL (80.0-100.0); Mean Platelet Volume 8.5; Microcytosis Moderate; Monocytes # (A) 0.5 k/uL (0-1.0); Monocytes % (A) 8 %; Neutrophils % (A) 53 %; Platelet Count 191 k/uL (150-450); RBC 3.35 m/uL (4.30-5.90); RDW 15.5 % (11.5-15.5); WBC 5.6 k/uL (3.8-10.6)
[2017-06-11 21:24] LABS: HGB 6.7 gm/dL (13.0-17.5)
[2017-06-11] MEDS: ATORVASTATIN 10 MG TAB PO SCH (22:43)
[2017-06-11] MEDS: METOPROLOL TARTRATE 25 MG TAB PO SCH (22:43)
[2017-06-11] MEDS: FAMOTIDINE 20 MG TAB PO SCH (22:43)
[2017-06-11 23:07] LABS: Creatine Kinase 33 U/L (55-170)
[2017-06-11 23:18] LABS: Creatine Kinase MB 0.2 ng/mL (0.0-2.4); Troponin I <0.012 ng/mL (0.000-0.034)
[2017-06-12] MEDS ORDERED: ACETAMINOPHEN TAB 325 MG TAB PO PRN (03:06)
[2017-06-12] MEDS: NITROGLYCERIN OINT 1 INCH/GM PACKET TOPICAL SCH ×5 (03:21→23:00)
[2017-06-12 05:54] LABS: Anisocytosis Slight; Basophils % (A) 0 %; Eosinophils # (A) 0.1 k/uL (0-0.7); Eosinophils % (A) 1 %; HCT 28.4 % (39.0-53.0); Hypochromasia Marked; Lymphocytes % (A) 11 %; MCH 20.6 pg (25.0-35.0); MCHC 28.3 g/dL (31.0-37.0); MCV 72.8 fL (80.0-100.0); Microcytosis Moderate; Monocytes # (A) 0.5 k/uL (0-1.0); Monocytes % (A) 5 %; Neutrophils # (A) 7.6 k/uL (1.3-7.7); Neutrophils % (A) 81 %; Platelet Count 209 k/uL (150-450); Poikilocytosis Slight; RBC 3.91 m/uL (4.30-5.90); RDW 16.3 % (11.5-15.5); WBC 9.4 k/uL (3.8-10.6)
[2017-06-12 05:59] LABS: Cholesterol 158 mg/dL (<200); HDL Cholesterol 52 mg/dL (40-60); LDL Cholesterol,Calculated 78 mg/dL (0-99); Triglycerides 142 mg/dL (<150)
[2017-06-12] MEDS: PANTOPRAZOLE 40 MG TABLET PO SCH (06:24)
[2017-06-12] MEDS ORDERED: ASPIRIN 81 MG PO SCH (09:00)
[2017-06-12 11:30] LABS: Iron Saturation 1.02 (15.00-50.00)
--- NOTE | 2017-06-12 11:51 | P.CONS ---
History of Present Illness - Reason for Consult Consult date: 06/12/17 Anemia Requesting physician: Romaine Del Rosario - History of Present Illness 56-year-old gentleman with a history of hemorrhoids, EtOH abuse, CHF, hypertension, hyperlipidemia, anxiety, and arthritis. Patient presents with chest pain and a one-month history of intermittent painless rectal bleeding bright red in nature. Blood noticed mostly on tissue paper not as much in the stool. Denies hematemesis or melena. Intermittent midepigastric discomfort over the last month without emesis. He has a history of intermittent hemorrhoidal bleeding and previous remote hemorrhoidectomy. Denies fever chills weight loss. Was taking naproxen daily for arthritic pain for the last 6 months quit about a month ago. He drinks 2 shots of liquor sometimes daily with occasional beer. No history of EGD or colonoscopy. No changes in appetite. Admission hemoglobin 7.3. MCV 69. Platelet 192. He received 1 unit of blood current hemoglobin is 8. INR 1.0. BUN 14. Creatinine 0.8. Troponin 3 less than 0.012. Home medications include Zantac 150 mg twice a day as well as a baby aspirin. Review of Systems Constitutional: Denies fever, chills, sweats, weight gain, or loss. HEENT: Negative for migraines, blurred vision or loss, earaches, drainage, tinnitus, oral mucosal lesions, dysphagia, or odynophagia. Cardiac: Hypertension. CHF. Hyperlipidemia. Negative for chest pain, arrhythmias, or palpitation. Respiratory: Negative for shortness of breath, hemoptysis, cough, or sputum production. Gastrointestinal: See HPI for pertinent findings. Genitourinary: Negative for hematuria, urgency, frequency, polyuria, dysuria, or penile discharge. Musculoskeletal: Negative for muscle aches, swelling, arthritis, and arthralgias. Neurologic: Negative for stroke or TIA. Endocrine: Negative for thyroid problems. Skin: Negative for rash or itching. Psychiatric: History of anxiety. Past Medical History Past Medical History: Heart Failure, Hyperlipidemia, Hypertension Additional Past Medical History / Comment(s): tobi hand arthritis requiring pain injections, hemmorhoids History of Any Multi-Drug Resistant Organisms: None Reported Past Surgical History: Heart Catheterization Additional Past Surgical History / Comment(s): hemmroidectomy Past Anesthesia/Blood Transfusion Reactions: No Reported Reaction Past Psychological History: Anxiety Smoking Status: Former smoker Past Alcohol Use History: None Reported Past Drug Use History: Marijuana - Past Family History Father Additional Family Medical History / Comment(s): parkinsons Medications and Allergies Home Medications Medication Instructions Recorded Confirmed Type Aspirin [Adult Low Dose Aspirin EC] 81 mg PO DAILY 06/26/16 06/11/17 History Atorvastatin [Lipitor] 10 mg PO HS 06/26/16 06/11/17 History Baclofen [Lioresal] 10 mg PO QID 06/26/16 06/11/17 History Metoprolol Tartrate [Lopressor] 25 mg PO BID 06/26/16 06/11/17 History Omeprazole [PriLOSEC] 40 mg PO MITZY-MOFSWeston #14 capsule. 06/26/16 06/11/17 Rx cloNIDine HCL [Catapres] 0.1 mg PO DAILY 06/30/16 06/11/17 History Ergocalciferol [Vitamin D2 50,000 units PO Q30D 08/10/16 06/11/17 History (JHONATAN)] LORazepam [Ativan] 0.5 mg PO BID PRN 08/10/16 06/11/17 History Ranitidine HCl [Zantac] 150 mg PO BID 06/11/17 06/11/17 History Allergies Allergy/AdvReac Type Severity Reaction Status Date / Time Penicillins Allergy Rash/Hives Verified 06/11/17 11:49 Physical Exam Vitals: Vital Signs Temp Pulse Pulse Resp BP BP BP 06/12/17 08:25 98.1 F 63 16 129/69 06/12/17 04:00 97.3 F L 74 12 132/78 06/12/17 02:45 98.3 F 62 12 122/78 06/12/17 02:16 62 14 122/78 06/12/17 00:50 98.5 F 64 12 110/75 06/12/17 00:20 98.7 F 61 12 115/71 06/12/17 00:10 98.3 F 57 L 12 122/72 06/12/17 00:00 62 14 06/11/17 20:00 97.4 F L 62 14 114/63 06/11/17 15:23 98.3 F 62 18 110/71 06/11/17 14:21 97.6 F 71 18 110/64 06/11/17 14:08 73 18 110/71 06/11/17 12:52 67 18 125/67 06/11/17 11:54 75 18 135/80 Pulse Ox 06/12/17 08:25 100 06/12/17 04:00 97 06/12/17 02:45 98 06/12/17 02:16 98 06/12/17 00:50 98 06/12/17 00:20 98 06/12/17 00:10 98 06/12/17 00:00 06/11/17 20:00 98 06/11/17 15:23 99 06/11/17 14:21 100 06/11/17 14:08 99 06/11/17 12:52 100 06/11/17 11:54 100 Intake and Output 06/11/17 06/12/17 06/12/17 22:59 06:59 14:59 Intake Total 240 700 Balance 240 700 Intake: Oral 240 300 Blood Product 300 Rc Pheresis As-3 Unit 300 [id number] Other 100 Rc Pheresis As-3 Unit 100 [id number] Other: # Voids 0 0 Weight 64 kg General appearance: The patient is alert, oriented, in no acute distress. HET: Head is normocephalic and atraumatic. Pupils are equal and reactive. Oropharynx is clear without lesions. Neck: Supple without lymphadenopathy. Trachea midline. Heart: S1 S2. Regular rate and rhythm. Lungs: No crackles or wheezes are heard. Abdomen: Soft, very mild midepigastric tenderness, nondistended with bowel sounds. No peritoneal signs. No palpable organomegaly or masses. Extremities: Normal skin color and turgor. No cyanosis, rash, ulceration, clubbing, or edema. Radial and pedal pulses are 2/4 bilaterally. Neurological: No focal deficits. Strength and sensation are grossly intact. Results CBC & Chem 7: 06/12/17 05:23 06/11/17 11:30 Labs: Abnormal Lab Results - Last 24 Hours (Table) 06/11/17 06/11/17 06/11/17 Range/Units 11:30 11:30 11:30 RBC 3.61 L (4.30-5.90) m/uL Hgb 7.3 L (13.0-17.5) gm/dL Hct 25.1 L (39.0-53.0) % MCV 69.5 L (80.0-100.0) fL MCH 20.2 L (25.0-35.0) pg MCHC 29.1 L (31.0-37.0) g/dL RDW 16.1 H (11.5-15.5) % Glucose 118 H (74-99) mg/dL Total Creatine Kinase 42 L (55-170) U/L Crossmatch 06/11/17 06/11/17 06/11/17 Range/Units 17:08 21:02 22:28 RBC 3.35 L (4.30-5.90) m/uL Hgb 6.7 L* (13.0-17.5) gm/dL Hct 24.4 L (39.0-53.0) % MCV 72.8 L (80.0-100.0) fL MCH 19.9 L (25.0-35.0) pg MCHC 27.3 L (31.0-37.0) g/dL RDW (11.5-15.5) % Glucose (74-99) mg/dL Total Creatine Kinase 37 L 33 L (55-170) U/L Crossmatch 06/11/17 06/12/17 Range/Units 22:28 05:23 RBC 3.91 L (4.30-5.90) m/uL Hgb 8.0 L (13.0-17.5) gm/dL Hct 28.4 L (39.0-53.0) % MCV 72.8 L (80.0-100.0) fL MCH 20.6 L (25.0-35.0) pg MCHC 28.3 L (31.0-37.0) g/dL RDW 16.3 H (11.5-15.5) % Glucose (74-99) mg/dL Total Creatine Kinase (55-170) U/L Crossmatch See Detail Assessment and Plan (1) Microcytic anemia Narrative/Plan: 56-year-old male admitted with chest pain symptomatic acute blood loss microcytic anemia with intermittent painless rectal bleeding 1 month as well as intermittent epigastric pain without emesis. Current Visit: Yes Status: Acute Code(s): D50.9 - IRON DEFICIENCY ANEMIA, UNSPECIFIED SNOMED Code(s): 603043566 (2) Rectal bleeding Current Visit: Yes Status: Acute Code(s): K62.5 - HEMORRHAGE OF ANUS AND RECTUM SNOMED Code(s): 31885560 (3) H/O ETOH abuse Current Visit: Yes Status: Acute Code(s): Z87.898 - PERSONAL HISTORY OF OTHER SPECIFIED CONDITIONS SNOMED Code(s): 282391844 (4) Acute blood loss anemia Current Visit: Yes Status: Acute Code(s): D62 - ACUTE POSTHEMORRHAGIC ANEMIA SNOMED Code(s): 491267870 Plan: 1. EGD colonoscopy. Hold aspirin for now until endoscopic exams are completed. 2. Iron indices. 3. Alcohol abstinence advised. The donor recruitment manager has discussed the risks, benefits and alternative therapies for the above-mentioned procedure and for both sedation/analgesia as well as necessary blood product administration, if indicated, as they pertain to this patient. The patient has indicated understanding and acceptance of the risks and procedures discussed. Thank you for this kind referral and the opportunity to participate in the care of your patient. This consultation was discussed with Dr. Gross. The impression and plan of care have been directed as dictated.
[2017-06-12] MEDS: FAMOTIDINE 20 MG TAB PO SCH ×2 (11:57→20:14)
[2017-06-12] MEDS: cloNIDine HCL 0.1 MG TAB PO SCH (11:57)
[2017-06-12] MEDS: BACLOFEN 10 MG TAB PO SCH ×4 (11:57→21:04)
[2017-06-12] MEDS: METOPROLOL TARTRATE 25 MG TAB PO SCH ×2 (11:58→20:14)
--- NOTE | 2017-06-12 14:10 | HP ---
HISTORY AND PHYSICAL CHIEF COMPLAINT: Chest pain. HISTORY OF PRESENT ILLNESS: This is another admission for this 56-year-old white male who presents to the emergency room with chest discomfort. Patient's EKG and enzymes are normal. However, his hemoglobin was low at 7.3. He has been having some hemorrhoidal bleeding, but no melena, significant hematochezia, etc. He has had no abdominal pain, weight loss, nausea, vomiting, etc. REVIEW OF SYSTEMS: He has had no palpitations, diaphoresis, orthopnea, PND, etc. He has had no hematuria. Past medical history, family history and social history reveals that he is allergic to PENICILLIN. He is on: 1. Metoprolol 25 mg twice a day. 2. Ativan 0.5 twice a day p.r.n. 3. Zantac 150 b.i.d. 4. Baclofen 10 mg t.i.d. 5. Atorvastatin 10 mg at bedtime. 6. Clonidine 0.1 twice a day. 7. Low-dose aspirin once a day. 8. Omeprazole 40 mg once a day. 9. Vitamin D. 10.Ativan 0.5 one or two once a day p.r.n. The remainder of his history is unremarkable. He does not smoke and does not drink. PHYSICAL EXAMINATION: Blood pressure is 108/68 with a pulse of 96, respirations of 32. He is afebrile. GENERAL: He appeared to be slightly pale, in no acute distress. Skin color is normal, skin is warm, dry. Lymph nodes not enlarged. Head, ears, eyes, nose, mouth, and throat were normal and neck veins were not distended. Thyroid is not enlarged. Chest is clear. Cardiac exam is normal. The abdomen is soft, nontender. Extremities are normal. Neurologically intact. Rectal was not performed at this time. IMPRESSION: 1. Chest pain. 2. Anemia. 3. Bleeding from hemorrhoids. 4. Arthritis. 5. Hypertension. PLAN: 1. Bed rest. 2. IV fluids. 3. Monitor for GI blood loss, anemia while looking for other causes of his anemia. MMODL / IJN: [id number] /
--- NOTE | 2017-06-12 14:19 | PN ---
PROGRESS NOTE DATE OF SERVICE: 06/12/17. CHIEF COMPLAINT: Anemia and GI blood loss. HISTORY OF PRESENT ILLNESS: This gentleman's hemoglobin continues to drop. He received a unit of packed cells. PHYSICAL EXAM: He is slightly pale. Chest is clear. Cardiac exam is normal. Abdomen is soft, nontender. No masses or visceromegaly. IMPRESSION: 1. Anemia, likely due to blood loss. 2. Hemorrhoids. 3. Hypertension. 4. Chest pain. PLAN: 1. Gastroenterology consult. 2. Cardiac enzymes have been normal. 3. Probable lower GI endoscopy. MMODL / IJN: [id number] /
[2017-06-12] MEDS ORDERED: PEG 3350-NA SULF,BICARB,CL/KCL 4,000 ML BOTTLE PO ONE (16:00)
[2017-06-12] MEDS: ATORVASTATIN 10 MG TAB PO SCH (20:14)
[2017-06-13] MEDS: NITROGLYCERIN OINT 1 INCH/GM PACKET TOPICAL SCH ×4 (05:53→23:21)
[2017-06-13] MEDS: PANTOPRAZOLE 40 MG TABLET PO SCH (06:02)
[2017-06-13] MEDS ORDERED: LACTATED RINGERS 1,000 ML IV ONE (07:51)
[2017-06-13] MEDS ORDERED: PROPOFOL 10 MG/ML 20 ML VIAL IV ONE (08:32)
[2017-06-13] MEDS ORDERED: LIDOCAINE 1% INJ 10MG/ML (20 ML MDV) ONE (08:32)
--- NOTE | 2017-06-13 09:24 | P.PCN ---
Date of Procedure: 06/13/17 Procedure(s) Performed: Procedure: 1. Esophagogastroduodenoscopy. 2. Colonoscopy and polypectomy. Preoperative diagnosis: Iron deficiency anemia and history of rectal bleeding and hemorrhoids. Postoperative diagnosis: 1. Small sliding hiatal hernia but no obvious esophagitis or complicated reflux disease. 2. Normal stomach and duodenum without any ulcers or bleeding. 3. Small rectal polyp snared but no large polyps or cancer of the colon. 4. Grade 2-3 internal hemorrhoids not bleeding at the time of this exam. Preparation: GoLYTELY prep. Sedation: Was provided by anesthesia. Brief clinical history: The patient is a 56-year-old male with history of hemorrhoids, EtOH abuse, CHF, hypertension, hyperlipidemia, anxiety, and arthritis. Patient presented with chest pain and a one-month history of intermittent painless rectal bleeding bright red in nature. Blood noticed mostly on tissue paper not as much in the stool. Denies hematemesis or melena. Intermittent midepigastric discomfort over the last month without emesis. He has a history of intermittent hemorrhoidal bleeding and previous remote hemorrhoidectomy. Denies fever chills weight loss. Was taking naproxen daily for arthritic pain for the last 6 months quit about a month ago. He drinks 2 shots of liquor sometimes daily with occasional beer. No history of EGD or colonoscopy. No changes in appetite. Admission hemoglobin 7.3. MCV 69. Platelet 192. He received 1 unit of blood current hemoglobin is 8. INR 1.0. BUN 14. Creatinine 0.8. Troponin 3 less than 0.012. Home medications include Zantac 150 mg twice a day as well as a baby aspirin. Procedure: With the patient on his left lateral decubitus position and after informed consent and adequate sedation, I passed the Olympus-GIF 160 video upper endoscope through the cricopharyngeus down the esophagus. There was a small sliding hiatal hernia but no obvious esophagitis or complicated reflux disease. There were no mucosal tears, varices or bleeding. The endoscope was then passed into the stomach which was insufflated with air and inspected in detail including the retroflex view in the cardia. No abnormalities were seen in the stomach. The endoscope was then passed through the pylorus into the duodenum. Pyloric channel, duodenal bulb, post bulbar area and descending duodenum appeared within normal limits. No biopsies were indicated then the endoscope was withdrawn and I proceeded to do colonoscopy. Perianal area did not show any fissures or fistulas. There were no masses felt on digital rectal examination. The Olympus CFQ 160L video colonoscope was then inserted in the rectum in the usual fashion and advanced to the cecum. The mucosa appeared healthy. There was a small rectal polyp which was snared and retrieved by suction but there were no large polyps or cancer. No obvious diverticular disease or bleeding. I retroflexed the endoscope in the rectum before the endoscope was withdrawn. Grade 2-3 internal hemorrhoids were noted with no evidence of bleeding at the time of this exam. The patient tolerated the procedure well. Plan: The patient was reassured. Discussed dietary measures and local care for hemorrhoids. Consideration can be given for a small bowel study the patient shows evidence of overt or occult bleeding and continue to have issues with iron deficiency anemia. With the finding of polyp, I recommended repeat colon exam in 5 years.
[2017-06-13] MEDS: BACLOFEN 10 MG TAB PO SCH ×4 (09:39→21:00)
[2017-06-13] MEDS: cloNIDine HCL 0.1 MG TAB PO SCH (09:39)
[2017-06-13] MEDS: FAMOTIDINE 20 MG TAB PO SCH ×2 (09:39→20:17)
[2017-06-13] MEDS: METOPROLOL TARTRATE 25 MG TAB PO SCH ×2 (09:39→20:17)
[2017-06-13] MEDS: LORazepam 0.5 MG TAB PO PRN (11:59)
--- NOTE | 2017-06-13 16:23 | PN ---
PROGRESS NOTE CHIEF COMPLAINT: Anemia. HISTORY OF PRESENT ILLNESS: This gentleman is going for endoscopies. Hemoglobin remains low and there is no clear cut reason for his anemia unless it is slow GI blood loss. Physical exam he has no complaints. PHYSICAL EXAM: He is pale. Chest is clear. Cardiac exam is normal. Abdomen is soft, nontender. Extremities are normal. IMPRESSION: Anemia. PLAN: Endoscopies and continue management after that. MMODL / IJN: [id number] /
[2017-06-13] MEDS: ATORVASTATIN 10 MG TAB PO SCH (20:17)
[2017-06-14] MEDS: NITROGLYCERIN OINT 1 INCH/GM PACKET TOPICAL SCH ×4 (05:46→23:48)
[2017-06-14] MEDS: PANTOPRAZOLE 40 MG TABLET PO SCH (06:30)
[2017-06-14] MEDS: cloNIDine HCL 0.1 MG TAB PO SCH (08:46)
[2017-06-14] MEDS: FAMOTIDINE 20 MG TAB PO SCH ×2 (08:46→19:56)
[2017-06-14] MEDS: BACLOFEN 10 MG TAB PO SCH ×4 (08:46→19:55)
[2017-06-14] MEDS: METOPROLOL TARTRATE 25 MG TAB PO SCH ×2 (08:46→19:56)
--- NOTE | 2017-06-14 12:07 | PN ---
PROGRESS NOTE CHIEF COMPLAINT: Anemia and possible GI blood loss. HISTORY OF PRESENT ILLNESS: This gentleman has been stable. He has had no further bleeding. PHYSICAL EXAM: Chest is clear. Cardiac exam is normal. Abdomen is soft, nontender. IMPRESSION: 1. Profound anemia. 2. Possible GI blood loss. PLAN: Increase activity and if he remains stable without any further difficulties or drop in hemoglobin, he will go home tomorrow. MMODL / IJN: [id number] /
[2017-06-14] MEDS: ATORVASTATIN 10 MG TAB PO SCH (19:55)
[2017-06-15 07:07] LABS: Anisocytosis Slight; Basophils # (A) 0.1 k/uL (0-0.2); Basophils % (A) 1 %; Eosinophils # (A) 0.2 k/uL (0-0.7); Eosinophils % (A) 2 %; HCT 30.5 % (39.0-53.0); HGB 8.5 gm/dL (13.0-17.5); Hypochromasia Marked; Lymphocytes # (A) 1.7 k/uL (1.0-4.8); Lymphocytes % (A) 26 %; MCH 20.7 pg (25.0-35.0); MCHC 27.7 g/dL (31.0-37.0); MCV 74.7 fL (80.0-100.0); Mean Platelet Volume 8.9; Microcytosis Slight; Monocytes # (A) 0.4 k/uL (0-1.0); Monocytes % (A) 7 %; Neutrophils # (A) 3.9 k/uL (1.3-7.7); Neutrophils % (A) 61 %; Platelet Count 223 k/uL (150-450); Poikilocytosis Slight; RBC 4.08 m/uL (4.30-5.90); RDW 16.9 % (11.5-15.5); WBC 6.3 k/uL (3.8-10.6)
[2017-06-15] MEDS: NITROGLYCERIN OINT 1 INCH/GM PACKET TOPICAL SCH ×2 (07:07→09:39)
[2017-06-15 07:17] LABS: Anion Gap 10 mmol/L; Blood Urea Nitrogen 14 mg/dL (9-20); Calcium 9.7 mg/dL (8.4-10.2); Carbon Dioxide 29 mmol/L (22-30); Chloride 104 mmol/L (98-107); Glucose 103 mg/dL (74-99); Potassium 4.9 mmol/L (3.5-5.1); Sodium 143 mmol/L (137-145)
[2017-06-15] MEDS: LORazepam 0.5 MG TAB PO PRN (09:37)
[2017-06-15] MEDS: METOPROLOL TARTRATE 25 MG TAB PO SCH (09:37)
[2017-06-15] MEDS: cloNIDine HCL 0.1 MG TAB PO SCH (09:37)
[2017-06-15] MEDS: FAMOTIDINE 20 MG TAB PO SCH (09:37)
[2017-06-15] MEDS: BACLOFEN 10 MG TAB PO SCH ×2 (09:37→15:56)
[2017-06-15] MEDS: PANTOPRAZOLE 40 MG TABLET PO SCH (09:37)
[2017-06-15 09:48] VITALS: BP 141/84; PULSE 81; RESP 16; TEMP 98
--- NOTE | 2017-06-15 15:35 | DS ---
DISCHARGE SUMMARY CHIEF COMPLAINT: Chest pain and anemia. HISTORY OF PRESENT ILLNESS AND PHYSICAL EXAM: Details of this man's history and physical can be found in the initial workup. LABORATORY STUDIES: While he was in a hospital he had laboratory studies details which can be found in the laboratory section of his chart. COURSE IN HOSPITAL: After admission, he was placed on bedrest, started on intravenous fluids and worked up for his anemia. Endoscopies revealed a small polyp and internal hemorrhoids. Hemoglobin did stabilize. He is doing well it was felt he could be discharged on the fifth and he will go home on his usual activity, diet, medication and we will see him in the office in several days. FINAL DIAGNOSIS: 1. Gastrointestinal blood loss. 2. Blood loss anemia. OPERATIONS: Endoscopies. CONSULTATIONS: Gastroenterology is improved. KIRILL / CHARLIEN: [id number] /
== END 2017-06-15 20:42 | disposition home or self-care (01) | DRG 378 ==
LOC: EC 11:21 → 6SEL 14:04 → 3SUR 06-15 03:17
PROVIDERS: ADMIT Family Medicine; ATTEND Family Medicine
PROC: 30233N1 Transfusion of Nonautologous Red Blood Cells into Peripheral Vein, Percutaneous Approach (ICD-10-PCS; 2017-06-11)
PROC: 0DJ08ZZ Inspection of Upper Intestinal Tract, Via Natural or Artificial Opening Endoscopic (ICD-10-PCS; principal; 2017-06-13 08:00)
PROC: 0DBP8ZX Excision of Rectum, Via Natural or Artificial Opening Endoscopic, Diagnostic (ICD-10-PCS; 2017-06-13 08:00)
DX: K92.2 Gastrointestinal hemorrhage, unspecified (principal); D62 Acute posthemorrhagic anemia; I11.0 Hypertensive heart disease with heart failure; I50.9 Heart failure, unspecified; D50.0 Iron deficiency anemia secondary to blood loss (chronic); E78.5 Hyperlipidemia, unspecified; F10.10 Alcohol abuse, uncomplicated; F41.9 Anxiety disorder, unspecified; K44.9 Diaphragmatic hernia without obstruction or gangrene; K64.8 Other hemorrhoids; K62.1 Rectal polyp; M19.91 Primary osteoarthritis, unspecified site; Z87.891 Personal history of nicotine dependence; Z79.82 Long term (current) use of aspirin; Z79.899 Other long term (current) drug therapy
CPT/HCPCS: 36415; 43235; 45385; 71046; 80048; 80053; 80061; 82272; 82550; 82553; 82728; 83540; 83550; 83735; 84484; 85025; 85045; 85610; 85730; 86850; 86900; 86901; 86920; 88305; 93005; 99285

== ENCOUNTER 2017-08-09 22:47 | Observation (INO) | payer OTHER ==
[2017-08-09 23:34] LABS: ALT 24 U/L (21-72); AST 18 U/L (17-59); Albumin 4.4 g/dL (3.5-5.0); Alkaline Phosphatase 58 U/L (38-126); Anion Gap 14 mmol/L; Blood Urea Nitrogen 15 mg/dL (9-20); Calcium 9.7 mg/dL (8.4-10.2); Carbon Dioxide 26 mmol/L (22-30); Chloride 105 mmol/L (98-107); Glucose 108 mg/dL (74-99); Potassium 4.1 mmol/L (3.5-5.1); Sodium 145 mmol/L (137-145); Total Bilirubin 0.3 mg/dL (0.2-1.3); Total Protein 6.8 g/dL (6.3-8.2)
[2017-08-09 23:38] LABS: Anisocytosis Moderate; Basophils % (A) 1 %; Eosinophils # (A) 0.1 k/uL (0-0.7); Eosinophils % (A) 2 %; HCT 35.9 % (39.0-53.0); Lymphocytes # (A) 1.4 k/uL (1.0-4.8); Lymphocytes % (A) 25 %; MCH 27.4 pg (25.0-35.0); MCHC 33.4 g/dL (31.0-37.0); Mean Platelet Volume 7.6; Microcytosis Moderate; Monocytes # (A) 0.4 k/uL (0-1.0); Monocytes % (A) 8 %; Neutrophils # (A) 3.6 k/uL (1.3-7.7); Neutrophils % (A) 61 %; Platelet Count 193 k/uL (150-450); Poikilocytosis Slight; RBC 4.38 m/uL (4.30-5.90); RDW 20.7 % (11.5-15.5); WBC 5.8 k/uL (3.8-10.6)
[2017-08-09 23:39] LABS: Creatine Kinase 34 U/L (55-170); Partial Thromboplastin Time 25.2 sec (22.0-30.0); Prothrombin Time 10.1 sec (9.0-12.0)
--- NOTE | 2017-08-09 23:47 | XR ---
EXAMINATION TYPE: XR chest 1V portable DATE OF EXAM: 08/09/2017 COMPARISON: 06/11/2017 HISTORY: Chest pain TECHNIQUE: Single frontal view of the chest is obtained. FINDINGS: Heart and mediastinum are normal. Lungs are clear. Diaphragm is normal. Bony thorax is int act. IMPRESSION: Normal chest. No change.
--- NOTE | 2017-08-09 23:51 | ED ---
Chest Pain HPI - General Source: patient Mode of arrival: wheelchair Limitations: no limitations - History of Present Illness MD Complaint: chest pain Onset/Timin -: hour(s) Onset: during rest Pain Location: substernal Pain Radiation: none Severity: moderate Quality: dull Consistency: constant Improves With: nothing Worsens With: nothing Treatments Prior to Arrival: none <Franklin Fuentes - Last Filed: 08/10/17 00:33> <Gabriel Kwon - Last Filed: 08/10/17 01:59> - General Chief Complaint: Chest Pain Stated Complaint: chest pain Time Seen by Provider: 08/09/17 22:56 - History of Present Illness Initial Comments: This patient's 56-year-old man with history of anxiety and previous episodes chest pain, who presents with what he states is similar to his previous anxiety and chest pain. Patient denies any anginal type symptoms associated with it, including no dyspnea, diaphoresis, nausea or vomiting, lightheadedness, palpitations or syncope. (Franklin Fuentes) - Related Data Home Medications Medication Instructions Recorded Confirmed Aspirin [Adult Low Dose Aspirin EC] 81 mg PO DAILY 06/26/16 06/11/17 Atorvastatin [Lipitor] 10 mg PO HS 06/26/16 06/11/17 Baclofen [Lioresal] 10 mg PO QID 06/26/16 06/11/17 Metoprolol Tartrate [Lopressor] 25 mg PO BID 06/26/16 06/11/17 cloNIDine HCL [Catapres] 0.1 mg PO DAILY 06/30/16 06/11/17 Ergocalciferol [Vitamin D2 50,000 units PO Q30D 08/10/16 06/11/17 (DRISDOL)] LORazepam [Ativan] 0.5 mg PO BID PRN 08/10/16 06/11/17 Ranitidine HCl [Zantac] 150 mg PO BID 06/11/17 06/11/17 Previous Rx's Medication Instructions Recorded Omeprazole [PriLOSEC] 40 mg PO AC-BRKFST #14 capsule. 06/26/16 Allergies Allergy/AdvReac Type Severity Reaction Status Date / Time Penicillins Allergy Rash/Hives Verified 08/09/17 22:50 Review of Systems ROS Other: All systems not noted in ROS Statement are negative. Constitutional: Denies: fever, chills Respiratory: Denies: cough, dyspnea Cardiovascular: Reports: as per HPI, chest pain. Denies: palpitations, orthopnea, edema, syncope Gastrointestinal: Denies: abdominal pain, nausea, vomiting Genitourinary: Denies: dysuria, hematuria Musculoskeletal: Denies: back pain Skin: Denies: rash Neurological: Denies: headache, weakness, numbness Psychiatric: Reports: anxiety <Franklin Fuentes - Last Filed: 08/10/17 00:33> ROS Other: All systems not noted in ROS Statement are negative. <DoyleYosefGabriel - Last Filed: 08/10/17 01:59> ROS Statement: Those systems with pertinent positive or pertinent negative responses have been documented in the HPI. EKG Findings - EKG Results: EKG: interpreted by NEEL, sinus rhythm (Rate approximate 62 bpm), normal axis, normal QRS, normal ST/T, no acute changes - NV, Pacemaker, Normal: Normal tracing: normal tracing <Franklin Fuentes - Last Filed: 08/10/17 00:33> Past Medical History Past Medical History: Heart Failure, Hyperlipidemia, Hypertension Additional Past Medical History / Comment(s): tobi hand arthritis requiring pain injections, hemmorhoids History of Any Multi-Drug Resistant Organisms: None Reported Past Surgical History: Heart Catheterization Additional Past Surgical History / Comment(s): hemmroidectomy Past Anesthesia/Blood Transfusion Reactions: No Reported Reaction Past Psychological History: Anxiety Smoking Status: Former smoker Past Alcohol Use History: None Reported Past Drug Use History: Marijuana - Past Family History Father Additional Family Medical History / Comment(s): parkinsons <Franklin Fuentes - Last Filed: 08/10/17 00:33> General Exam Limitations: no limitations General appearance: alert, in no apparent distress Head exam: Present: atraumatic, normocephalic Eye exam: Present: normal appearance. Absent: scleral icterus, conjunctival injection ENT exam: Present: normal oropharynx Respiratory exam: Present: normal lung sounds bilaterally. Absent: respiratory distress, wheezes, rales, rhonchi, stridor, chest wall tenderness Cardiovascular Exam: Present: regular rate, normal rhythm, normal heart sounds. Absent: systolic murmur, diastolic murmur, rubs, gallop GI/Abdominal exam: Present: soft. Absent: distended, tenderness, guarding, rebound, mass Extremities exam: Present: normal inspection, normal capillary refill. Absent: pedal edema, calf tenderness Back exam: Present: normal inspection. Absent: CVA tenderness (R), CVA tenderness (L) Neurological exam: Present: alert Skin exam: Present: warm, dry, intact, normal color. Absent: rash <Franklin Fuentes - Last Filed: 08/10/17 00:33> Course <SethabebaFranklin - Last Filed: 08/10/17 00:33> <Gabriel Kwon - Last Filed: 08/10/17 01:59> Vital Signs 08/09/17 08/09/17 08/10/17 22:49 23:45 00:50 Temperature 98.4 F Pulse Rate 68 72 74 Respiratory 18 18 16 Rate Blood Pressure 142/80 126/84 129/82 O2 Sat by Pulse 97 97 96 Oximetry Shouldn't is reassessed at term 1:58 AM, he still has a mild chest discomfort but he is better than when he came in I reviewed the CT of the chest is unremarkable findings were discussed with the patient the CT chest angiogram is negative for any pulmonary embolism, I plan to admit patient to observation for 3 sets of cardiac markers and to Dr. Del Rosario service and patient will be seeing cardiology as well (Gabriel Kwon) Disposition <AlfredoFranklin - Last Filed: 08/10/17 00:33> <Gabriel Kwon - Last Filed: 08/10/17 01:59> Clinical Impression: Chest pain Disposition: ADMITTED IP TO THIS [facility] Condition: Good Referrals: Romaine Del Rosario MD [Primary Care Provider] - 1-2 days
[2017-08-09 23:52] LABS: Creatine Kinase MB 0.5 ng/mL (0.0-2.4); Troponin I <0.012 ng/mL (0.000-0.034)
[2017-08-09 23:54] LABS: D-Dimer 1.22 mg/L FEU (<0.60)
[2017-08-10] MEDS ORDERED: RX INFO: IV CONTRAST WAS GIVEN 1 EACH MISC MISCELLANE PRN (00:54)
--- NOTE | 2017-08-10 01:37 | CT ---
EXAMINATION TYPE: CT chest angio for PE DATE OF EXAM: 08/10/2017 COMPARISON: 06/26/2016 HISTORY: R/O PE, Chest Pain CT DLP: 223.60 mGycm Automated exposure control for dose reduction was used. CONTRAST: CT Chest for pulmonary embolism performed with with IV Contrast, patient injected with 85 mL of Isovu e 370. FINDINGS: There are 3-D post processed images. The lungs are clear of infiltrate. There is no evidence of a pulmonary mass. There is no pleural effu lei. There is no pericardial effusion. There is normal contrast opacification of the pulmonary arteries. I see no filling defects. There is no evidence of aortic aneurysm or dissection. There is no mediastinal adenopathy. There are no hilar masses. The bony thorax is intact. IMPRESSION: Normal CT angiogram of the chest. No evidence of pulmonary embolism. No adverse change compared to ol d exam.
[2017-08-10] MEDS ORDERED: MORPHINE SULFATE 4 MG/0.8 ML SYRINGE (INJ) IVP PRN (02:00)
[2017-08-10] MEDS ORDERED: ACETAMINOPHEN TAB 325 MG TAB PO PRN (02:00)
[2017-08-10] MEDS ORDERED: NITROGLYCERIN SL TABS 0.4 MG TAB SUBLINGUAL PRN (02:00)
[2017-08-10] MEDS ORDERED: LORazepam 0.5 MG TAB PO PRN (02:03)
[2017-08-10 02:25] LABS: Creatine Kinase 32 U/L (55-170)
[2017-08-10 02:38] LABS: Creatine Kinase MB 0.4 ng/mL (0.0-2.4); Troponin I <0.012 ng/mL (0.000-0.034)
[2017-08-10] MEDS ORDERED: PANTOPRAZOLE 40 MG TABLET PO SCH (07:30)
[2017-08-10 08:29] LABS: Creatine Kinase 28 U/L (55-170)
[2017-08-10 08:39] LABS: Creatine Kinase MB 0.3 ng/mL (0.0-2.4); Troponin I <0.012 ng/mL (0.000-0.034)
--- NOTE | 2017-08-10 08:41 | P.CRDCN ---
History of Present Illness Consult date: 08/10/17 Chief complaint: Chest discomfort History of present illness: This is a pleasant 56-year-old gentleman who sees Dr. VC Bah in the office as an outpatient with a past medical history significant for hypertension and dyslipidemia presented to the emergency room complaining of chest discomfort. He does have history of anxiety/panic attack as well and also history of recurrent chest discomfort. He was admitted to the hospital a year ago with a chest discomfort and was ruled out for acute coronary syndrome. At that point he underwent an echocardiogram and that revealed normal LV function. According to him in June 2016 he did undergo a heart catheterization at [facility] in [place] and that was unremarkable. I will get a copy of the heart catheterization. He was in his usual state of health until last night when he was making dinner and get upset for some reason. He started experiencing chest discomfort in the mid of the chest as a sharp kind of discomfort without radiation to the arm or neck or shoulders and without any associated symptoms of shortness of breath, sweating, dizziness or lightheadedness or syncope. When he arrived the emergency room he was pain-free. He underwent an EKG which revealed sinus rhythm without any ST or T-wave abnormalities. The cardiac enzymes were checked and came in to be unremarkable. Currently the patient is a pain-free. In terms of past medical history he does have hypertension and dyslipidemia and no documented history of coronary artery disease. No coronary artery stenting in the past. He is not a smoker. And there is no family history of coronary artery disease. Past Medical History Past Medical History: Heart Failure, Hyperlipidemia, Hypertension Additional Past Medical History / Comment(s): tobi hand arthritis requiring pain injections, hemmorhoids History of Any Multi-Drug Resistant Organisms: None Reported Past Surgical History: Heart Catheterization Additional Past Surgical History / Comment(s): hemmroidectomy Past Anesthesia/Blood Transfusion Reactions: No Reported Reaction Past Psychological History: Anxiety Smoking Status: Former smoker Past Alcohol Use History: None Reported Past Drug Use History: Marijuana - Past Family History Father Additional Family Medical History / Comment(s): parkinsons Medications and Allergies Home Medications Medication Instructions Recorded Confirmed Type Aspirin [Adult Low Dose Aspirin EC] 81 mg PO DAILY 06/26/16 08/10/17 History Atorvastatin [Lipitor] 10 mg PO HS 06/26/16 08/10/17 History Baclofen [Lioresal] 10 mg PO QID 06/26/16 08/10/17 History Metoprolol Tartrate [Lopressor] 25 mg PO BID 06/26/16 08/10/17 History Omeprazole [PriLOSEC] 40 mg PO MITZY-MOFSWeston #14 capsule. 06/26/16 08/10/17 Rx cloNIDine HCL [Catapres] 0.1 mg PO DAILY 06/30/16 08/10/17 History Ergocalciferol [Vitamin D2 50,000 units PO Q30D 08/10/16 08/10/17 History (DRISDOL)] LORazepam [Ativan] 0.5 mg PO BID PRN 08/10/16 08/10/17 History Ranitidine HCl [Zantac] 150 mg PO BID 06/11/17 08/10/17 History Ferrous Sulfate [Feosol] 325 mg PO TID 08/10/17 08/10/17 History Allergies Allergy/AdvReac Type Severity Reaction Status Date / Time Penicillins Allergy Rash/Hives Verified 08/10/17 08:00 Physical Exam Vitals: Vital Signs Temp Pulse Resp BP Pulse Ox 08/10/17 06:20 54 L 16 117/72 99 08/10/17 05:20 54 L 16 107/70 98 08/10/17 04:23 52 L 16 114/75 97 08/10/17 03:49 57 L 16 125/72 97 08/10/17 02:00 62 16 134/79 96 08/10/17 00:50 74 16 129/82 96 08/09/17 23:45 72 18 126/84 97 08/09/17 22:49 98.4 F 68 18 142/80 97 Intake and Output 08/09/17 08/10/17 08/10/17 22:59 06:59 14:59 Other: Weight 63.503 kg - Constitutional General appearance: no acute distress - Respiratory Respiratory: bilateral: CTA - Cardiovascular Rhythm: regular Heart sounds: normal: S1, S2 Abnormal Heart Sounds: systolic murmur Results 08/09/17 23:15 08/09/17 23:15 Cardiac Enzymes 08/09/17 08/09/17 08/10/17 Range/Units 23:15 23:15 02:01 AST 18 (17-59) U/L CK-MB (CK-2) 0.5 0.4 (0.0-2.4) ng/mL Troponin I <0.012 <0.012 (0.000-0.034) ng/mL Coagulation 08/09/17 Range/Units 23:15 PT 10.1 (9.0-12.0) sec APTT 25.2 (22.0-30.0) sec CBC 08/09/17 Range/Units 23:15 WBC 5.8 (3.8-10.6) k/uL RBC 4.38 (4.30-5.90) m/uL Hgb 12.0 L D (13.0-17.5) gm/dL Hct 35.9 L (39.0-53.0) % Plt Count 193 (150-450) k/uL Comprehensive Metabolic Panel 08/09/17 Range/Units 23:15 Sodium 145 (137-145) mmol/L Potassium 4.1 (3.5-5.1) mmol/L Chloride 105 (98-107) mmol/L Carbon Dioxide 26 (22-30) mmol/L BUN 15 (9-20) mg/dL Creatinine 0.90 (0.66-1.25) mg/dL Glucose 108 H (74-99) mg/dL Calcium 9.7 (8.4-10.2) mg/dL AST 18 (17-59) U/L ALT 24 (21-72) U/L Alkaline Phosphatase 58 (38-126) U/L Total Protein 6.8 (6.3-8.2) g/dL Albumin 4.4 (3.5-5.0) g/dL Current Medications Generic Name Dose Route Start Last Admin Trade Name Freq PRN Reason Stop Dose Admin Acetaminophen 650 mg 08/10/17 02:00 Tylenol Tab PO Q4HR PRN Pain Aspirin 325 mg 08/11/17 09:00 Aspirin PO DAILY [facility] Atorvastatin Calcium 10 mg 08/10/17 21:00 Lipitor PO HS LARISSA Baclofen 10 mg 08/10/17 09:00 Lioresal PO QID LARISSA Clonidine 0.1 mg 08/10/17 09:00 Catapres PO DAILY [facility] Ergocalciferol 50,000 unit 08/17/17 09:00 Vitamin D2 PO Q30D [facility] Lorazepam 0.5 mg 08/10/17 02:03 Ativan PO BID PRN Anxiety Metoprolol Tartrate 25 mg 08/10/17 09:00 Lopressor PO BID LARISSA Miscellaneous Information 1 each 08/10/17 00:54 Rx Info: Iv Contrast Was Given MISCELLANE 08/12/17 00:54 DAILY PRN Per Protocol Morphine Sulfate 2 mg 08/10/17 02:00 Morphine Sulfate (Inj) IVP Q5M PRN Chest Pain Nitroglycerin 0.4 mg 08/10/17 02:00 Nitrostat SUBLINGUAL Q5M PRN Chest Pain Pantoprazole Sodium 40 mg 08/10/17 07:30 Protonix PO AC-BRKFST LARISSA Intake and Output 08/09/17 08/10/17 08/10/17 22:59 06:59 14:59 Other: Weight 63.503 kg 08/09/17 23:15 08/09/17 23:15 Assessment and Plan Assessment: Assessment #1 anxiety/panic disorder #2 atypical chest discomfort which has resolved completely #3 hypertension which seems to be well-controlled #4 dyslipidemia on lipid lowering agents Plan #1 the patient was ruled out for acute coronary event #2 I will obtain a copy of a heart catheterization from a year ago. If the heart catheterization was unremarkable the patient can be discharged home. I don't see a reason to undergo any stress test at this moment. #3 meanwhile I will obtain an echocardiogram because of systolic murmur was here on examination. #4 we'll continue following up with him. Thank you for allowing us participate in his care
[2017-08-10] MEDS ORDERED: cloNIDine HCL 0.1 MG TAB PO SCH (09:00)
[2017-08-10] MEDS ORDERED: BACLOFEN 10 MG TAB PO SCH (09:00)
[2017-08-10] MEDS ORDERED: FAMOTIDINE 20 MG TAB PO SCH (09:00)
[2017-08-10] MEDS ORDERED: METOPROLOL TARTRATE 25 MG TAB PO SCH (09:00)
--- NOTE | 2017-08-10 12:53 | P.DS ---
Providers Date of admission: 08/10/17 02:03 Attending physician: Romaine Del Rosario Consults: 08/10/17 02:00 Consult Physician Urgent Consulting Provider: Jace Barroso Consult Reason/Comments: Chest pain Do you want consulting provider notified?: Yes Primary care physician: Romaine Del Rosario Hospital Course: 56-year-old gentleman was admitted secondary to chest pain. I was asked to see the patient as a the ER care team was unable to increase her primary care physician. Dr. Del Rosario evaluated the patient today morning. Patient was evaluated by cardiology as well cleared for discharge. I did talk to the patient took the history and did the physical exam. Patient's symptomatology is consistent with anxiety episode. Patient is already on appropriate medications for that. Patient also has additional symptoms of gastroesophageal reflux disease after dinner last night. Patient is taking Zantac as well as Prilosec in the morning. Zantac may not be beneficial at as he is taking proton pump inhibitor. He takes 40 mg of Prilosec in the morning asked him to take 20 twice a day of Prilosec before breakfast and before dinner for at least 15 days. If patient can use to have the symptoms will need an upper GI endoscopy because of his age and continued dyspepsia and gastroesophageal reflux disease. Patient is also on clonidine only once a day after looking at his blood pressures and dosing of this medication, I do not believe patient will require clonidine that will be discontinued and patient will follow Dr. Del Rosario as an outpatient in 3-7 days. PHYSICAL EXAMINATION: GENERAL: The patient is alert and oriented x3, not in any acute distress. Well developed, well nourished. HEENT: Pupils are round and equally reacting to light. EOMI. No scleral icterus. No conjunctival pallor. Normocephalic, atraumatic. No pharyngeal erythema. No thyromegaly. CARDIOVASCULAR: S1 and S2 present. No murmurs, rubs, or gallops. PULMONARY: Chest is clear to auscultation, no wheezing or crackles. ABDOMEN: Soft, nontender, nondistended, normoactive bowel sounds. No palpable organomegaly. MUSCULOSKELETAL: No joint swelling or deformity. EXTREMITIES: No cyanosis, clubbing, or pedal edema. NEUROLOGICAL: Gross neurological examination did not reveal any focal deficits. SKIN: No rashes. Patient Condition at Discharge: Good Plan - Discharge Summary Discharge Rx Participant: No New Discharge Prescriptions: Continue Metoprolol Tartrate [Lopressor] 25 mg PO BID Baclofen [Lioresal] 10 mg PO QID Atorvastatin [Lipitor] 10 mg PO HS Aspirin [Adult Low Dose Aspirin EC] 81 mg PO DAILY LORazepam [Ativan] 0.5 mg PO BID PRN PRN Reason: Anxiety Ergocalciferol [Vitamin D2 (DRISDOL)] 50,000 units PO Q30D Ferrous Sulfate [Iron (65 MG Elemental)] 325 mg PO TID Changed Omeprazole [PriLOSEC] 20 mg PO BID #14 capsule. Discontinued cloNIDine HCL [Catapres] 0.1 mg PO DAILY Ranitidine HCl [Zantac] 150 mg PO BID Discharge Medication List Aspirin [Adult Low Dose Aspirin EC] 81 mg PO DAILY 06/26/16 [History] Atorvastatin [Lipitor] 10 mg PO HS 06/26/16 [History] Baclofen [Lioresal] 10 mg PO QID 06/26/16 [History] Metoprolol Tartrate [Lopressor] 25 mg PO BID 06/26/16 [History] Ergocalciferol [Vitamin D2 (DRISDOL)] 50,000 units PO Q30D 08/10/16 [History] LORazepam [Ativan] 0.5 mg PO BID PRN 08/10/16 [History] Ferrous Sulfate [Iron (65 MG Elemental)] 325 mg PO TID 08/10/17 [History] Omeprazole [PriLOSEC] 20 mg PO BID #14 capsule. 08/10/17 [Rx] Follow up Appointment(s)/Referral(s): Romaine Del Rosario MD [Primary Care Provider] - 3 Days Discharge Disposition: HOME SELF-CARE
--- NOTE | 2017-08-10 12:56 | ECHOF ---
Referral Reason:cp MEASUREMENTS -------- HEIGHT: 172.7 cm WEIGHT: 63.5 kg BP: 117/72 RVIDd: 3.4 cm (< 3.3) IVSd: 1.1 cm (0.6 - 1.1) LVIDd: 5.5 cm (3.9 - 5.3) LVPWd: 1.1 cm (0.6 - 1.1) IVSs: 1.5 cm LVIDs: 3.7 cm LVPWs: 1.2 cm LA Diam: 3.4 cm (2.7 - 3.8) LAESV Index (A-L): 24.30 ml/m Ao Diam: 3.3 cm (2.0 - 3.7) AV Cusp: 2.3 cm (1.5 - 2.6) MV EXCURSION: 11.388 mm (> 18.000) MV EF SLOPE: 90 mm/s (70 - 150) EPSS: 0.9 cm MV E Jan: 0.53 m/s MV DecT: 332 ms MV A Jan: 0.43 m/s MV E/A Ratio: 1.22 FINDINGS -------- Resting bradycardia (HR<60bpm). This was a technically good study. The left ventricular size is normal. There is borderline concentric left ventricular hypertrophy. Overall left ventricular systolic function is normal with, an EF between 55 - 60 %. The right ventricle is mildly enlarged. Normal LA size by volume 22+/-6 ml/m2. The right atrium is normal in size. There is mild aortic valve sclerosis. Trace amount of aortic regurgitation. The mitral valve leaflets are mildly thickened. There is trace to mild mitral regurgitation. No regurgitation noted There is no pulmonic regurgitation present. The aortic root size is normal. Normal inferior vena cava with normal inspiratory collapse consistent with estimated right atrial pre ssure of 5 mmHg. There is no pericardial effusion. CONCLUSIONS -------- 1. Resting bradycardia (HR<60bpm). 2. This was a technically good study. 3. The left ventricular size is normal. 4. There is borderline concentric left ventricular hypertrophy. 5. Overall left ventricular systolic function is normal with, an EF between 55 - 60 %. 6. The right ventricle is mildly enlarged. 7. Normal LA size by volume 22+/-6 ml/m2. 8. The right atrium is normal in size. 9. There is mild aortic valve sclerosis. 10. Trace amount of aortic regurgitation. 11. The mitral valve leaflets are mildly thickened. 12. There is trace to mild mitral regurgitation. 13. No regurgitation noted 14. There is no pulmonic regurgitation present. 15. The aortic root size is normal. 16. Normal inferior vena cava with normal inspiratory collapse consistent with estimated right atrial pressure of 5 mmHg. 17. There is no pericardial effusion. OUTSIDE UPHOLSTERER: Sarah Bridges RDCS
[2017-08-10 14:00] VITALS: BP 112/66; PULSE 64; RESP 18; TEMP 98.1
[2017-08-10] MEDS ORDERED: MORPHINE ORAL SOLN 10 MG/5 ML CUP PO PRN (14:53)
[2017-08-10] MEDS ORDERED: ATORVASTATIN 10 MG TAB PO SCH (21:00)
--- NOTE | 2017-08-11 06:54 | HP ---
HISTORY AND PHYSICAL CHIEF COMPLAINT: Anxiety and shortness of breath. HISTORY OF PRESENT ILLNESS: This is another admission for this 56-year-old white male. He does have history of coronary artery disease. He apparently became very anxious and began to notice some anterior chest discomfort which is vague and diffuse. It was not particularly on either side or the other. He had no associated diaphoresis, shortness of breath, fever, chills, cough, hemoptysis, sputum production, etc. He came to the emergency room where he his evaluation was unremarkable. REVIEW OF SYSTEMS: He has had no other complaints. PAST MEDICAL HISTORY, FAMILY HISTORY, PERSONAL AND SOCIAL HISTORY: Reveal he is allergic to PENICILLIN. He is on Zantac 150 twice a day, Toprol 25 mg twice a day, clonidine 0.1 twice a day, atorvastatin 10 once a day, ferrous sulfate 325 three times a day, omeprazole 40 mg once a day, 81 mg of aspirin once a day, Ativan 0.5 twice a day p.r.n., baclofen 10 mg t.i.d. p.r.n., and vitamin D 50,000 units a month. The remainder of his history is unremarkable. He has never smoked. He used to drink, but has stopped. Family history is unremarkable. PHYSICAL EXAM: Blood pressure is 114/84, pulse 72, respirations 16. He is afebrile. In general he appeared to be well developed, well nourished, no acute distress. Skin color is normal. Skin is warm, dry. Lymph nodes not enlarged. Head, ears, eyes, nose, mouth, and throat were normal. Neck veins not distended. Thyroid is not enlarged. Chest is clear. Cardiac exam is normal. No murmurs or extra sounds. Abdomen is soft, nontender without visceromegaly or masses. Extremities normal. Neurological is intact. IMPRESSION: 1. Atypical chest pain. 2. History of coronary artery disease. 3. Hypertension. 4. Anxiety. PLAN: 1. Bed rest. 2. IV fluids. 3. Serial EKGs and enzymes. 4. Cardiology consult. MMJAVIL / CHARLIEN: [id number] /
--- NOTE | 2017-08-11 07:09 | DS ---
DISCHARGE SUMMARY CHIEF COMPLAINT: Chest pain. HISTORY OF PRESENT ILLNESS AND PHYSICAL EXAMINATION: Details of this man's history and physical can be found in the initial workup. LABORATORY STUDIES: While he was in the hospital, he had laboratory studies, details of which can be found in the laboratory section of his chart. COURSE IN HOSPITAL: After admission he was placed on bedrest and started on intravenous fluids and had serial EKGs and enzymes. He was seen by Cardiology and felt he could be discharged. He was to be sent home on his usual activity, diet and medication and will be followed up in the office in a day or two. FINAL DIAGNOSES: 1. Atypical chest pain. 2. Coronary artery disease. 3. Hypertension. 4. Anemia. OPERATIONS: None. CONSULTATIONS: Cardiology. He is improved. KIRILL / AMY: [id number] /
[2017-08-11] MEDS ORDERED: ASPIRIN 325 MG TAB PO SCH (09:00)
[2017-08-17] MEDS ORDERED: ERGOCALCIFEROL 50,000 UNIT CAP PO SCH (09:00)
== END 2017-08-10 14:00 | disposition home or self-care (01) ==
LOC: EC 22:47 → 3OBS 08-10 02:03
PROVIDERS: ADMIT Family Medicine; ATTEND Family Medicine
DX: R07.89 Other chest pain (principal); I25.10 Atherosclerotic heart disease of native coronary artery without angina pectoris; F41.9 Anxiety disorder, unspecified; M19.042 Primary osteoarthritis, left hand; M19.041 Primary osteoarthritis, right hand; E78.5 Hyperlipidemia, unspecified; I11.0 Hypertensive heart disease with heart failure; I50.9 Heart failure, unspecified; K21.9 Gastro-esophageal reflux disease without esophagitis; D64.9 Anemia, unspecified; Z82.0 Family history of epilepsy and other diseases of the nervous system; Z87.891 Personal history of nicotine dependence; Z88.0 Allergy status to penicillin; Z79.899 Other long term (current) drug therapy; Z79.82 Long term (current) use of aspirin
CPT/HCPCS: 36415 ×2; 93005; 93306; 85379; 80053; 82550 ×2; 82553 ×2; 83735; 84484 ×2; 85025; 85610; 85730; 71045; 71275; G0378; Q9967; 99285

== ENCOUNTER 2017-09-07 20:02 | Emergency (ER) | payer OTHER ==
[2017-09-07] MEDS ORDERED: SODIUM CHLORIDE 0.9% 1,000 ML IV STA ×2 (20:44)
--- NOTE | 2017-09-07 20:46 | ED ---
Arrhythmia/Palpitations HPI - General Chief Complaint: Arrhythmia/Palpitations Stated Complaint: Palpatations Time Seen by Provider: 09/07/17 20:17 Source: patient, RN notes reviewed, old records reviewed Mode of arrival: ambulatory Limitations: no limitations - History of Present Illness Initial Comments: Patient's 56-year-old male with a history of unstable angina presents emergency Department chief complaint 3 hours of palpitations. He reports that he did develop some mild shortness of breath during that time. He denies any fever or chills, nausea or vomiting. No diaphoresis. He states that the shortness of breath seemed to diminish this time. He reports that his discomfort and distress is a 1 out of 10. - Related Data Home Medications Medication Instructions Recorded Confirmed Aspirin [Adult Low Dose Aspirin EC] 81 mg PO DAILY 06/26/16 08/10/17 Atorvastatin [Lipitor] 10 mg PO HS 06/26/16 08/10/17 Baclofen [Lioresal] 10 mg PO QID 06/26/16 08/10/17 Metoprolol Tartrate [Lopressor] 25 mg PO BID 06/26/16 08/10/17 Ergocalciferol [Vitamin D2 50,000 units PO Q30D 08/10/16 08/10/17 (DRISDOL)] LORazepam [Ativan] 0.5 mg PO BID PRN 08/10/16 08/10/17 Ferrous Sulfate [Iron (65 MG 325 mg PO TID 08/10/17 08/10/17 Elemental)] Previous Rx's Medication Instructions Recorded Omeprazole [PriLOSEC] 20 mg PO BID #14 capsule.dr 08/10/17 cloNIDine HCL [Catapres] 0.1 mg PO DAILY tab 08/10/17 Allergies Allergy/AdvReac Type Severity Reaction Status Date / Time Penicillins Allergy Rash/Hives Verified 08/10/17 08:00 Review of Systems ROS Statement: Those systems with pertinent positive or pertinent negative responses have been documented in the HPI. ROS Other: All systems not noted in ROS Statement are negative. Past Medical History Past Medical History: Chest Pain / Angina, GI Bleed, Hyperlipidemia, Hypertension, Osteoarthritis (OA) Additional Past Medical History / Comment(s): Pt recently admitted to [facility] on 06/11/17 with chest discomfort and was found to be anemic- colonoscopy showed small polyp and internal hemorrhoids as source of GI bleed. Other Hx: tobi hand arthritis requiring pain injections, hemmorhoids History of Any Multi-Drug Resistant Organisms: None Reported Past Surgical History: Heart Catheterization Additional Past Surgical History / Comment(s): 2017 Cardiac cath-normal at [facility], 06/2017 colonoscopy. Past Anesthesia/Blood Transfusion Reactions: No Reported Reaction Additional Past Anesthesia/Blood Transfusion Reaction / Comment(s): Pt has received blood without reaction. Past Psychological History: Anxiety Smoking Status: Former smoker Past Alcohol Use History: Occasional Past Drug Use History: None Reported - Past Family History Father Family Medical History: Musculoskeletal Disorder, Neurologic Disorder Additional Family Medical History / Comment(s): parkinsons Mother Family Medical History: No Reported History General Exam - General Exam Comments Initial Comments: Patient is an-year-old male. Alert and oriented. No acute distress. Limitations: no limitations General appearance: alert, in no apparent distress Head exam: Present: atraumatic, normocephalic, normal inspection Eye exam: Present: normal appearance, PERRL, EOMI. Absent: scleral icterus, conjunctival injection, periorbital swelling ENT exam: Present: normal exam, mucous membranes moist Neck exam: Present: normal inspection. Absent: tenderness, meningismus, lymphadenopathy Respiratory exam: Present: normal lung sounds bilaterally. Absent: respiratory distress, wheezes, rales, rhonchi, stridor Cardiovascular Exam: Present: regular rate, normal rhythm, normal heart sounds. Absent: systolic murmur, diastolic murmur, rubs, gallop, clicks GI/Abdominal exam: Present: soft, normal bowel sounds. Absent: distended, tenderness, guarding, rebound, rigid Extremities exam: Present: normal inspection, full ROM, normal capillary refill. Absent: tenderness, pedal edema, joint swelling, calf tenderness Back exam: Present: normal inspection Neurological exam: Present: alert, oriented X3, CN II-XII intact Psychiatric exam: Present: normal affect, normal mood Skin exam: Present: warm, dry, intact, normal color. Absent: rash Course Vital Signs 09/07/17 09/07/17 09/07/17 20:06 20:36 21:52 Temperature 99.1 F Pulse Rate 84 87 Pulse Rate [ 76 Production Sanitizer ] Respiratory 16 17 Rate Blood Pressure 173/97 136/86 O2 Sat by Pulse 98 98 Oximetry 09/07/17 23:31 Temperature 97.9 F Pulse Rate 64 Pulse Rate [ Production Sanitizer ] Respiratory 18 Rate Blood Pressure 121/56 O2 Sat by Pulse 98 Oximetry Medical Decision Making - Medical Decision Making Patient's 56-year-old male with a history of unstable angina presents emergency Department chief complaint 3 hours of palpitations. He reports that he did develop some mild shortness of breath during that time. Patient has been in NSR during ER stay, denies any feelings of palpitation. Patient labs were reviewed and normal. Normal XR. Given patient age and history, i offered admission for cardiac observation. Patient was reevaluated and states that he is feeling better. Patient refuses admission. Discussed follow up, and return parameters discussed. - Lab Data Result diagrams: 09/07/17 20:24 09/07/17 20:24 Lab Results 09/07/17 09/07/17 09/07/17 Range/Units 20:24 20:24 20:24 WBC 6.7 (3.8-10.6) k/uL RBC 4.57 (4.30-5.90) m/uL Hgb 13.5 (13.0-17.5) gm/dL Hct 40.1 (39.0-53.0) % MCV 87.8 D (80.0-100.0) fL MCH 29.6 (25.0-35.0) pg MCHC 33.7 (31.0-37.0) g/dL RDW 19.3 H (11.5-15.5) % Plt Count 204 (150-450) k/uL Neutrophils % 61 % Lymphocytes % 26 % Monocytes % 7 % Eosinophils % 2 % Basophils % 1 % Neutrophils # 4.1 (1.3-7.7) k/uL Lymphocytes # 1.8 (1.0-4.8) k/uL Monocytes # 0.5 (0-1.0) k/uL Eosinophils # 0.1 (0-0.7) k/uL Basophils # 0.0 (0-0.2) k/uL Anisocytosis Slight Microcytosis Slight PT (9.0-12.0) sec INR (<1.2) APTT (22.0-30.0) sec Sodium 143 (137-145) mmol/L Potassium 4.1 (3.5-5.1) mmol/L Chloride 102 (98-107) mmol/L Carbon Dioxide 26 (22-30) mmol/L Anion Gap 15 mmol/L BUN 16 (9-20) mg/dL Creatinine 1.00 (0.66-1.25) mg/dL Est GFR (CKD-EPI)AfAm >90 (>60 ml/min/1.73 sqM) Est GFR (CKD-EPI)NonAf 83 (>60 ml/min/1.73 sqM) Glucose 100 H (74-99) mg/dL Calcium 9.7 (8.4-10.2) mg/dL Magnesium 2.0 (1.6-2.3) mg/dL Total Bilirubin 0.4 (0.2-1.3) mg/dL AST 24 (17-59) U/L ALT 33 (21-72) U/L Alkaline Phosphatase 66 (38-126) U/L Total Creatine Kinase 42 L (55-170) U/L CK-MB (CK-2) 0.3 (0.0-2.4) ng/mL CK-MB (CK-2) Rel Index 0.7 Troponin I <0.012 (0.000-0.034) ng/mL Total Protein 7.3 (6.3-8.2) g/dL Albumin 4.6 (3.5-5.0) g/dL 09/07/17 Range/Units 20:24 WBC (3.8-10.6) k/uL RBC (4.30-5.90) m/uL Hgb (13.0-17.5) gm/dL Hct (39.0-53.0) % MCV (80.0-100.0) fL MCH (25.0-35.0) pg MCHC (31.0-37.0) g/dL RDW (11.5-15.5) % Plt Count (150-450) k/uL Neutrophils % % Lymphocytes % % Monocytes % % Eosinophils % % Basophils % % Neutrophils # (1.3-7.7) k/uL Lymphocytes # (1.0-4.8) k/uL Monocytes # (0-1.0) k/uL Eosinophils # (0-0.7) k/uL Basophils # (0-0.2) k/uL Anisocytosis Microcytosis PT 10.0 (9.0-12.0) sec INR 1.0 (<1.2) APTT 25.5 (22.0-30.0) sec Sodium (137-145) mmol/L Potassium (3.5-5.1) mmol/L Chloride (98-107) mmol/L Carbon Dioxide (22-30) mmol/L Anion Gap mmol/L BUN (9-20) mg/dL Creatinine (0.66-1.25) mg/dL Est GFR (CKD-EPI)AfAm (>60 ml/min/1.73 sqM) Est GFR (CKD-EPI)NonAf (>60 ml/min/1.73 sqM) Glucose (74-99) mg/dL Calcium (8.4-10.2) mg/dL Magnesium (1.6-2.3) mg/dL Total Bilirubin (0.2-1.3) mg/dL AST (17-59) U/L ALT (21-72) U/L Alkaline Phosphatase (38-126) U/L Total Creatine Kinase (55-170) U/L CK-MB (CK-2) (0.0-2.4) ng/mL CK-MB (CK-2) Rel Index Troponin I (0.000-0.034) ng/mL Total Protein (6.3-8.2) g/dL Albumin (3.5-5.0) g/dL 09/07/17 21:05 EKG performed at 2014 shows normal sinus rhythm, normal EKG. No evidence of ST elevation or T-wave inversion. Ventricular rate of 60 beats were minute. Was 148. QRS 94. QT QTc 382/46. Disposition Clinical Impression: Palpitations Disposition: HOME SELF-CARE Condition: Good Instructions: Palpitations (ED) Additional Instructions: Patient has follow-up with primary care provider. Return to the emergency department if any alarming signs or symptoms occur. Is patient prescribed a controlled substance at d/c from ED?: No When asked, does pt state using other controlled substances?: No If prescribed controlled substance>3 days was MAPS reviewed?: No If opioid is for acute pain is fill amount 7 days or less?: No If Rx opioid, was Start Talking consent form obtained?: No Referrals: Romaine Del Rosario MD [Primary Care Provider] - 1-2 days Time of Disposition: 23:18
--- NOTE | 2017-09-07 21:31 | XR ---
EXAMINATION: XR chest 2V DATE AND TIME: 09/07/2017 9:04 PM ORDERING PROVIDER: Isela Schwarz CLINICAL INDICATION: dysrhythmia TECHNIQUE: PA and lateral COMPARISON: [phone] [id number] DESCRIPTION: The lungs are clear. The pleural spaces are negative. The cardiac silhouette is not enlarged. The mediastinal and pleural silhouettes are unremarkable. The skeletal structures are intact without focal findings. The soft tissues are unremarkable. IMPRESSION: NO ACUTE PROCESS.
[2017-09-07 22:12] LABS: Anisocytosis Slight; Basophils % (A) 1 %; Eosinophils # (A) 0.1 k/uL (0-0.7); Eosinophils % (A) 2 %; HCT 40.1 % (39.0-53.0); HGB 13.5 gm/dL (13.0-17.5); Lymphocytes # (A) 1.8 k/uL (1.0-4.8); Lymphocytes % (A) 26 %; MCH 29.6 pg (25.0-35.0); MCHC 33.7 g/dL (31.0-37.0); Mean Platelet Volume 7.4; Microcytosis Slight; Monocytes # (A) 0.5 k/uL (0-1.0); Monocytes % (A) 7 %; Neutrophils # (A) 4.1 k/uL (1.3-7.7); Neutrophils % (A) 61 %; Platelet Count 204 k/uL (150-450); RBC 4.57 m/uL (4.30-5.90); RDW 19.3 % (11.5-15.5); WBC 6.7 k/uL (3.8-10.6)
[2017-09-07 22:14] LABS: MCV 87.8 fL (80.0-100.0)
[2017-09-07 22:19] LABS: Partial Thromboplastin Time 25.5 sec (22.0-30.0)
[2017-09-07 22:20] LABS: ALT 33 U/L (21-72); AST 24 U/L (17-59); Albumin 4.6 g/dL (3.5-5.0); Alkaline Phosphatase 66 U/L (38-126); Anion Gap 15 mmol/L; Blood Urea Nitrogen 16 mg/dL (9-20); Calcium 9.7 mg/dL (8.4-10.2); Carbon Dioxide 26 mmol/L (22-30); Chloride 102 mmol/L (98-107); Glucose 100 mg/dL (74-99); Potassium 4.1 mmol/L (3.5-5.1); Sodium 143 mmol/L (137-145); Total Bilirubin 0.4 mg/dL (0.2-1.3); Total Protein 7.3 g/dL (6.3-8.2)
[2017-09-07 22:36] LABS: Creatine Kinase 42 U/L (55-170)
[2017-09-07 22:48] LABS: Creatine Kinase MB 0.3 ng/mL (0.0-2.4); Troponin I <0.012 ng/mL (0.000-0.034)
[2017-09-07 23:32] VITALS: BP 121/56; PULSE 64; RESP 18; TEMP 97.9
== END 2017-09-07 23:32 | disposition home or self-care (01) ==
LOC: EC 20:02
DX: R00.2 Palpitations (principal); R06.02 Shortness of breath; E78.5 Hyperlipidemia, unspecified; I10 Essential (primary) hypertension; M19.042 Primary osteoarthritis, left hand; M19.041 Primary osteoarthritis, right hand; Z95.5 Presence of coronary angioplasty implant and graft; Z88.0 Allergy status to penicillin; Z79.82 Long term (current) use of aspirin; Z79.899 Other long term (current) drug therapy; Z87.891 Personal history of nicotine dependence
CPT/HCPCS: 36415; 71046; 80053; 82550; 82553; 83735; 84484; 85025; 85610; 85730; 93005; 96360; 96361; 99285

== ENCOUNTER 2017-12-04 10:31 | Emergency (ER) | payer OTHER ==
[2017-12-04 10:48] VITALS: RESP 18
[2017-12-04] MEDS ORDERED: LORazepam 2 MG/ML INJ IV STA (10:57)
--- NOTE | 2017-12-04 11:00 | ED ---
General Adult HPI - General Chief complaint: Arrhythmia/Palpitations Stated complaint: Palpitations Time Seen by Provider: 12/04/17 10:40 Source: patient, EMS, RN notes reviewed Mode of arrival: EMS Limitations: no limitations - History of Present Illness Initial comments: Patient is a pleasant 56-year-old male presenting to the emergency Department with complaints of palpitations. Onset of symptoms was this morning. Symptoms lasted 10-15 minutes. Patient felt his heart rate was fast and pounding. Patient states symptoms resolved with talking with EMS and is now symptom-free. Patient denies ever having chest pain. No dyspnea. Patient does admit to having history of anxiety and being upset this morning. - Related Data Home Medications Medication Instructions Recorded Confirmed Aspirin [Adult Low Dose Aspirin EC] 81 mg PO HS 06/26/16 12/04/17 Atorvastatin [Lipitor] 10 mg PO DAILY 06/26/16 12/04/17 Baclofen [Lioresal] 10 mg PO QID 06/26/16 12/04/17 Metoprolol Tartrate [Lopressor] 25 mg PO BID 06/26/16 12/04/17 LORazepam [Ativan] 0.5 mg PO BID PRN 08/10/16 12/04/17 Ferrous Sulfate [Iron (65 MG 325 mg PO TID 08/10/17 12/04/17 Elemental)] Omeprazole 20 mg PO BID 12/04/17 12/04/17 Previous Rx's Medication Instructions Recorded cloNIDine HCL [Catapres] 0.1 mg PO DAILY tab 08/10/17 Allergies Allergy/AdvReac Type Severity Reaction Status Date / Time Penicillins Allergy Rash/Hives Verified 12/04/17 10:56 Review of Systems ROS Statement: Those systems with pertinent positive or pertinent negative responses have been documented in the HPI. ROS Other: All systems not noted in ROS Statement are negative. Constitutional: Denies: fever Eyes: Denies: eye pain ENT: Denies: ear pain Respiratory: Denies: cough, dyspnea Cardiovascular: Reports: palpitations. Denies: chest pain Endocrine: Denies: fatigue Gastrointestinal: Denies: abdominal pain Genitourinary: Denies: urgency Musculoskeletal: Denies: back pain Skin: Denies: rash Neurological: Denies: weakness Past Medical History Past Medical History: Chest Pain / Angina, GI Bleed, Hyperlipidemia, Hypertension, Osteoarthritis (OA) Additional Past Medical History / Comment(s): Pt recently admitted to [facility] on 06/11/17 with chest discomfort and was found to be anemic- colonoscopy showed small polyp and internal hemorrhoids as source of GI bleed. Other Hx: tobi hand arthritis requiring pain injections, hemmorhoids History of Any Multi-Drug Resistant Organisms: None Reported Past Surgical History: Heart Catheterization Additional Past Surgical History / Comment(s): 2017 Cardiac cath-normal at [facility], 06/2017 colonoscopy. Past Anesthesia/Blood Transfusion Reactions: No Reported Reaction Additional Past Anesthesia/Blood Transfusion Reaction / Comment(s): Pt has received blood without reaction. Past Psychological History: Anxiety Smoking Status: Former smoker Past Alcohol Use History: Occasional Past Drug Use History: None Reported - Past Family History Father Family Medical History: Musculoskeletal Disorder, Neurologic Disorder Additional Family Medical History / Comment(s): parkinsons Mother Family Medical History: No Reported History General Exam Limitations: no limitations General appearance: alert, in no apparent distress Head exam: Present: atraumatic Eye exam: Present: normal appearance, PERRL ENT exam: Present: normal oropharynx Neck exam: Present: normal inspection Respiratory exam: Present: normal lung sounds bilaterally. Absent: chest wall tenderness Cardiovascular Exam: Present: regular rate, normal rhythm Expanded Peripheral pulses: 2+: Radial (R), Radial (L), Posterior Tibialis (R), Posterior Tibialis (L) GI/Abdominal exam: Present: soft. Absent: tenderness Extremities exam: Present: normal inspection. Absent: pedal edema, calf tenderness Neurological exam: Present: alert Psychiatric exam: Present: normal affect, normal mood Skin exam: Present: normal color Course Vital Signs 12/04/17 12/04/17 10:44 11:27 Temperature 98.7 F Pulse Rate 92 77 Respiratory 18 18 Rate Blood Pressure 152/99 148/99 O2 Sat by Pulse 97 97 Oximetry EKG Findings - EKG Comments: EKG Findings:: Normal sinus rhythm at 90. VT 164. QRS 90. QT 374. QTC 457. Normal axis. Normal QRS. Nonspecific ST-T. Medical Decision Making - Medical Decision Making Patient reevaluated and resting comfortably in bed. Patient symptom-free. Patient updated on results including elevated blood sugar and need for follow- up. - Lab Data Result diagrams: 12/04/17 10:34 12/04/17 10:34 Lab Results 12/04/17 12/04/17 12/04/17 Range/Units 10:34 10:34 10:34 WBC 6.6 (3.8-10.6) k/uL RBC 4.58 (4.30-5.90) m/uL Hgb 14.1 (13.0-17.5) gm/dL Hct 43.2 (39.0-53.0) % MCV 94.2 (80.0-100.0) fL MCH 30.7 (25.0-35.0) pg MCHC 32.6 (31.0-37.0) g/dL RDW 13.3 (11.5-15.5) % Plt Count 193 (150-450) k/uL Neutrophils % 66 % Lymphocytes % 23 % Monocytes % 7 % Eosinophils % 2 % Basophils % 1 % Neutrophils # 4.4 (1.3-7.7) k/uL Lymphocytes # 1.5 (1.0-4.8) k/uL Monocytes # 0.4 (0-1.0) k/uL Eosinophils # 0.1 (0-0.7) k/uL Basophils # 0.0 (0-0.2) k/uL PT (9.0-12.0) sec INR (<1.2) APTT (22.0-30.0) sec Sodium 142 (137-145) mmol/L Potassium 3.9 (3.5-5.1) mmol/L Chloride 104 (98-107) mmol/L Carbon Dioxide 24 (22-30) mmol/L Anion Gap 14 mmol/L BUN 12 (9-20) mg/dL Creatinine 0.84 (0.66-1.25) mg/dL Est GFR (CKD-EPI)AfAm >90 (>60 ml/min/1.73 sqM) Est GFR (CKD-EPI)NonAf >90 (>60 ml/min/1.73 sqM) Glucose 185 H (74-99) mg/dL Calcium 9.4 (8.4-10.2) mg/dL Magnesium 1.9 (1.6-2.3) mg/dL Total Bilirubin 0.8 (0.2-1.3) mg/dL AST 32 (17-59) U/L ALT 58 (21-72) U/L Alkaline Phosphatase 60 (38-126) U/L Total Creatine Kinase 38 L (55-170) U/L CK-MB (CK-2) 0.4 (0.0-2.4) ng/mL CK-MB (CK-2) Rel Index 1.1 Troponin I <0.012 (0.000-0.034) ng/mL Total Protein 7.5 (6.3-8.2) g/dL Albumin 4.8 (3.5-5.0) g/dL TSH 1.550 (0.465-4.680) mIU/L Free T4 1.08 (0.78-2.19) ng/dL Free T3 pg/mL 3.9 (2.8-5.3) pg/ml 12/04/17 Range/Units 10:34 WBC (3.8-10.6) k/uL RBC (4.30-5.90) m/uL Hgb (13.0-17.5) gm/dL Hct (39.0-53.0) % MCV (80.0-100.0) fL MCH (25.0-35.0) pg MCHC (31.0-37.0) g/dL RDW (11.5-15.5) % Plt Count (150-450) k/uL Neutrophils % % Lymphocytes % % Monocytes % % Eosinophils % % Basophils % % Neutrophils # (1.3-7.7) k/uL Lymphocytes # (1.0-4.8) k/uL Monocytes # (0-1.0) k/uL Eosinophils # (0-0.7) k/uL Basophils # (0-0.2) k/uL PT 10.2 (9.0-12.0) sec INR 1.0 (<1.2) APTT 25.5 (22.0-30.0) sec Sodium (137-145) mmol/L Potassium (3.5-5.1) mmol/L Chloride (98-107) mmol/L Carbon Dioxide (22-30) mmol/L Anion Gap mmol/L BUN (9-20) mg/dL Creatinine (0.66-1.25) mg/dL Est GFR (CKD-EPI)AfAm (>60 ml/min/1.73 sqM) Est GFR (CKD-EPI)NonAf (>60 ml/min/1.73 sqM) Glucose (74-99) mg/dL Calcium (8.4-10.2) mg/dL Magnesium (1.6-2.3) mg/dL Total Bilirubin (0.2-1.3) mg/dL AST (17-59) U/L ALT (21-72) U/L Alkaline Phosphatase (38-126) U/L Total Creatine Kinase (55-170) U/L CK-MB (CK-2) (0.0-2.4) ng/mL CK-MB (CK-2) Rel Index Troponin I (0.000-0.034) ng/mL Total Protein (6.3-8.2) g/dL Albumin (3.5-5.0) g/dL TSH (0.465-4.680) mIU/L Free T4 (0.78-2.19) ng/dL Free T3 pg/mL (2.8-5.3) pg/ml - Radiology Data Radiology results: image reviewed (Chest x-ray shows no acute process) Disposition Clinical Impression: Palpitations Disposition: HOME SELF-CARE Condition: Stable Instructions: Palpitations (ED) Additional Instructions: Please follow-up with primary care physician in the next couple days for recheck. Also have primary care physician check blood sugar and consider formal testing for diabetes. Return for increased heart rate, chest pain, difficulty breathing, worsening or changing symptoms or other concerns. Is patient prescribed a controlled substance at d/c from ED?: No Referrals: Romaine Del Rosario MD [Primary Care Provider] - 1-2 days Time of Disposition: 12:51
[2017-12-04 11:17] LABS: Basophils % (A) 1 %; Eosinophils # (A) 0.1 k/uL (0-0.7); Eosinophils % (A) 2 %; HCT 43.2 % (39.0-53.0); HGB 14.1 gm/dL (13.0-17.5); Lymphocytes # (A) 1.5 k/uL (1.0-4.8); Lymphocytes % (A) 23 %; MCH 30.7 pg (25.0-35.0); MCHC 32.6 g/dL (31.0-37.0); MCV 94.2 fL (80.0-100.0); Mean Platelet Volume 7.8; Monocytes # (A) 0.4 k/uL (0-1.0); Monocytes % (A) 7 %; Neutrophils # (A) 4.4 k/uL (1.3-7.7); Neutrophils % (A) 66 %; Platelet Count 193 k/uL (150-450); RBC 4.58 m/uL (4.30-5.90); RDW 13.3 % (11.5-15.5); WBC 6.6 k/uL (3.8-10.6)
[2017-12-04 11:21] LABS: Partial Thromboplastin Time 25.5 sec (22.0-30.0); Prothrombin Time 10.2 sec (9.0-12.0)
[2017-12-04 11:26] LABS: ALT 58 U/L (21-72); AST 32 U/L (17-59); Albumin 4.8 g/dL (3.5-5.0); Alkaline Phosphatase 60 U/L (38-126); Anion Gap 14 mmol/L; Blood Urea Nitrogen 12 mg/dL (9-20); Calcium 9.4 mg/dL (8.4-10.2); Carbon Dioxide 24 mmol/L (22-30); Chloride 104 mmol/L (98-107); Glucose 185 mg/dL (74-99); Magnesium 1.9 mg/dL (1.6-2.3); Potassium 3.9 mmol/L (3.5-5.1); Sodium 142 mmol/L (137-145); Total Bilirubin 0.8 mg/dL (0.2-1.3); Total Protein 7.5 g/dL (6.3-8.2)
[2017-12-04 11:43] LABS: T4, Free (Free Thyroxine) 1.08 ng/dL (0.78-2.19)
[2017-12-04 11:59] LABS: Creatine Kinase 38 U/L (55-170)
--- NOTE | 2017-12-04 12:10 | XR ---
EXAMINATION TYPE: XR chest 2V DATE OF EXAM: 12/04/2017 COMPARISON: Prior chest 09/07/2017 HISTORY: Dysrhythmia, tachycardia TECHNIQUE: Frontal and lateral views of the chest are obtained. FINDINGS: There is no focal air space opacity, pleural effusion, or pneumothorax seen. The cardiac silhouette size is within normal limits. The osseous structures are intact. There are overlying car diac leads. Prominent lung volume is noted which could be compatible with COPD. IMPRESSION: No acute cardiopulmonary process.
[2017-12-04 12:12] LABS: Creatine Kinase MB 0.4 ng/mL (0.0-2.4); Troponin I <0.012 ng/mL (0.000-0.034)
[2017-12-04 13:13] VITALS: BP 117/79; PULSE 73; TEMP 98
== END 2017-12-04 13:13 | disposition home or self-care (01) ==
LOC: EC 10:31
DX: R00.2 Palpitations (principal); R73.9 Hyperglycemia, unspecified; I10 Essential (primary) hypertension; E78.5 Hyperlipidemia, unspecified; F41.9 Anxiety disorder, unspecified; Z79.82 Long term (current) use of aspirin; Z79.899 Other long term (current) drug therapy; Z88.0 Allergy status to penicillin; Z87.891 Personal history of nicotine dependence; Z95.5 Presence of coronary angioplasty implant and graft
CPT/HCPCS: 36415; 93005; 84439; 84481; 80053; 82550; 82553; 83735; 84443; 84484; 85025; 85610; 85730; 71046; 99285; 96374; J2060

== ENCOUNTER 2018-03-27 04:38 | Emergency (ER) | payer OTHER ==
[2018-03-27 04:50] VITALS: RESP 18
[2018-03-27] MEDS ORDERED: ASPIRIN 81 MG PO STA (04:58)
[2018-03-27] MEDS ORDERED: SODIUM CHLORIDE 0.9% 1,000 ML IV STA (04:58)
[2018-03-27] MEDS ORDERED: LORazepam 1 MG TAB PO STA (05:43)
[2018-03-27 05:51] LABS: Basophils % (A) 0 %; Eosinophils # (A) 0.1 k/uL (0-0.7); Eosinophils % (A) 2 %; HCT 37.3 % (39.0-53.0); HGB 12.8 gm/dL (13.0-17.5); Lymphocytes % (A) 12 %; MCH 31.8 pg (25.0-35.0); MCHC 34.2 g/dL (31.0-37.0); Mean Platelet Volume 7.6; Monocytes # (A) 0.6 k/uL (0-1.0); Monocytes % (A) 7 %; Neutrophils # (A) 6.8 k/uL (1.3-7.7); Neutrophils % (A) 79 %; Platelet Count 174 k/uL (150-450); RBC 4.01 m/uL (4.30-5.90); RDW 13.4 % (11.5-15.5); WBC 8.7 k/uL (3.8-10.6)
--- NOTE | 2018-03-27 05:59 | XR ---
EXAM: XR Chest, 2 Views CLINICAL HISTORY: Chest Pain TECHNIQUE: Frontal and lateral views of the chest. COMPARISON: 12/04/17 FINDINGS: Lungs: Unremarkable. No consolidation. Pleural space: Unremarkable. No pneumothorax. Heart: Unremarkable. No cardiomegaly. Mediastinum: Unremarkable. Bones/joints: Unremarkable. IMPRESSION: Normal chest x-rays.
[2018-03-27 06:02] LABS: INR 0.9 (<1.2)
[2018-03-27 06:03] LABS: Partial Thromboplastin Time 25.8 sec (22.0-30.0); Prothrombin Time 9.9 sec (9.0-12.0)
[2018-03-27 06:04] LABS: ALT 43 U/L (21-72); AST 26 U/L (17-59); Albumin 4.4 g/dL (3.5-5.0); Alkaline Phosphatase 59 U/L (38-126); Anion Gap 11 mmol/L; Blood Urea Nitrogen 13 mg/dL (9-20); Calcium 9.3 mg/dL (8.4-10.2); Carbon Dioxide 25 mmol/L (22-30); Chloride 104 mmol/L (98-107); Glucose 118 mg/dL (74-99); Magnesium 1.9 mg/dL (1.6-2.3); Potassium 3.8 mmol/L (3.5-5.1); Sodium 140 mmol/L (137-145); Total Bilirubin 0.8 mg/dL (0.2-1.3); Total Protein 7.3 g/dL (6.3-8.2)
--- NOTE | 2018-03-27 06:22 | ED ---
Chest Pain HPI - General Chief Complaint: Chest Pain Stated Complaint: Chest Pain Time Seen by Provider: 03/27/18 04:58 Source: patient Mode of arrival: ambulatory Limitations: no limitations - History of Present Illness Initial Comments: Harjinder is a 57-year-old male with past medical history is documented below who presents to the emergency Department today with complaints of feeling anxious and body aches including feeling tightness in his muscles in his neck back and chest. Patient reports that he typically takes baclofen multiple times daily for muscle spasms as well as Ativan by mouth as needed for anxiety. Patient states that 2 days ago he had a hemorrhoidectomy and was prescribed Vicodin and advised that time he could not take his baclofen or his Ativan while taking Vicodin. Patient reports he's been taking Vicodin approximately once every 6 hours but has not had his medications in 2 days. Patient reports he's been feeling very anxious agitated and feeling as though his muscles are spasming. Patient reports that he has tightness in his neck in the muscles of his back coming around to his chest. Reports a tightness feels like muscle tightness. He denies any exertional chest pain, diaphoresis, dyspnea, orthopnea. Patient reports a tightness in the muscles of his neck is causing him a mild headache however this improves when taking the Vicodin. - Related Data Home Medications Medication Instructions Recorded Confirmed Aspirin [Adult Low Dose Aspirin EC] 81 mg PO HS 06/26/16 12/04/17 Atorvastatin [Lipitor] 10 mg PO DAILY 06/26/16 12/04/17 Baclofen [Lioresal] 10 mg PO QID 06/26/16 12/04/17 Metoprolol Tartrate [Lopressor] 25 mg PO BID 06/26/16 12/04/17 LORazepam [Ativan] 0.5 mg PO BID PRN 08/10/16 12/04/17 Ferrous Sulfate [Iron (65 MG 325 mg PO TID 08/10/17 12/04/17 Elemental)] Omeprazole 20 mg PO BID 12/04/17 12/04/17 Previous Rx's Medication Instructions Recorded cloNIDine HCL [Catapres] 0.1 mg PO DAILY tab 08/10/17 Allergies Allergy/AdvReac Type Severity Reaction Status Date / Time Penicillins Allergy Rash/Hives Verified 03/27/18 04:50 Review of Systems ROS Statement: Those systems with pertinent positive or pertinent negative responses have been documented in the HPI. ROS Other: All systems not noted in ROS Statement are negative. Past Medical History Past Medical History: Chest Pain / Angina, GI Bleed, Hyperlipidemia, Hypertension, Osteoarthritis (OA) Additional Past Medical History / Comment(s): Pt recently admitted to [facility] on 06/11/17 with chest discomfort and was found to be anemic- colonoscopy showed small polyp and internal hemorrhoids as source of GI bleed. Other Hx: tobi hand arthritis requiring pain injections, hemmorhoids History of Any Multi-Drug Resistant Organisms: None Reported Past Surgical History: Heart Catheterization Additional Past Surgical History / Comment(s): 2017 Cardiac cath-normal at [facility], 06/2017 colonoscopy.hemmorhoidectomy Past Anesthesia/Blood Transfusion Reactions: No Reported Reaction Additional Past Anesthesia/Blood Transfusion Reaction / Comment(s): Pt has received blood without reaction. Past Psychological History: Anxiety Smoking Status: Former smoker Past Alcohol Use History: Occasional Past Drug Use History: None Reported - Past Family History Father Family Medical History: Musculoskeletal Disorder, Neurologic Disorder Additional Family Medical History / Comment(s): parkinsons Mother Family Medical History: No Reported History General Exam Limitations: no limitations Course Vital Signs 03/27/18 03/27/18 04:46 05:27 Temperature 98.9 F Pulse Rate 95 Pulse Rate [ 87 Tripe Cooker ] Respiratory 18 Rate Blood Pressure 166/92 O2 Sat by Pulse 98 Oximetry Chest Pain MDM - [facility] Patient was seen and evaluated history is obtained from patient I have high suspicion the patient has some withdrawal from his chronic muscle relaxer and benzodiazepine use, however will obtain a cardiac workup Patient reports symptoms have been progressively going on for 2 days and kept him awake all night tonight EKG sinus rhythm, rate of 80, normal axis, normal intervals, GA 140, QRS 86, QTC 438. There are no acute ST elevations or depressions no evidence of acute ischemia or infarction. Labs no significant abnormalities, troponin is negative after 2 days of symptoms At this time I do not feel the patient's symptoms are related to cardiac cause. Patient has been resting comfortably in the emergency department reports he is feeling much better. I advised the patient that he should decrease his Vicodin to once every 8 hours and can take his baclofen 2 times daily but not take it with the Vicodin. I advised the patient he cannot take all 3 medications at the same time as they are all sedating. Patient expressed understanding of this. All questions pertaining care were answered patient was discharged home in stable condition. Disposition Clinical Impression: Medication withdrawal, Atypical chest pain, Panic attack Disposition: HOME SELF-CARE Condition: Good Instructions: Chest Pain (ED) Is patient prescribed a controlled substance at d/c from ED?: No Referrals: Romaine Del Rosario MD [Primary Care Provider] - 1-2 days Time of Disposition: 06:41
[2018-03-27 06:23] LABS: Creatine Kinase 131 U/L (55-170)
[2018-03-27 06:36] LABS: Creatine Kinase MB 0.8 ng/mL (0.0-2.4); Troponin I <0.012 ng/mL (0.000-0.034)
[2018-03-27 06:57] VITALS: PULSE 82; TEMP 97.8
[2018-03-27 06:58] VITALS: BP 141/94
== END 2018-03-27 07:03 | disposition home or self-care (01) ==
LOC: EC 04:38
DX: R07.89 Other chest pain (principal); F41.0 Panic disorder [episodic paroxysmal anxiety]; F19.939 Other psychoactive substance use, unspecified with withdrawal, unspecified; E78.5 Hyperlipidemia, unspecified; I10 Essential (primary) hypertension; M19.90 Unspecified osteoarthritis, unspecified site; F41.9 Anxiety disorder, unspecified; Z87.891 Personal history of nicotine dependence; Z79.82 Long term (current) use of aspirin; Z79.899 Other long term (current) drug therapy; Z88.0 Allergy status to penicillin; Z95.818 Presence of other cardiac implants and grafts
CPT/HCPCS: 36415; 71046; 80053; 82550; 82553; 83735; 84484; 85025; 85610; 85730; 96360; 99285

== ENCOUNTER 2018-08-06 10:53 | Emergency (ER) | payer OTHER ==
[2018-08-06 10:57] VITALS: TEMP 97.4
[2018-08-06] MEDS ORDERED: Acetaminophen-Codeine 300-30mg TAB PO STA (12:33)
--- NOTE | 2018-08-06 12:43 | ED ---
General Adult HPI - General Chief complaint: Neck Pain/Injury Stated complaint: neck pain/headache Time Seen by Provider: 08/06/18 12:01 Source: patient, RN notes reviewed, old records reviewed Mode of arrival: ambulatory Limitations: no limitations - History of Present Illness Initial comments: 57-year-old male patient with past medical history of degenerative disc disease and cervical spine presents to ED with neck pain and mild waxing and waning headaches. Patient states that he has chronic pain in his cervical spine, however since that the pain has been worse the last 3 days and has had some mild waxing and waning associated headaches. Patient denies any recent falls or trauma. Patient denies worst headache of life, thunderclap, changes in vision. Patient states that the pain in his cervical spine is in the left paracervical region, states that it is the same pain as he's had in past, however it is worse. Denies any other complaints. Systemic: Pt denies fatigue, myalgia, fever/chills, rash. Pt denies weakness, night sweats, weight loss. Neuro: Pt denies headache, visual disturbances, syncope or pre-syncope. HEENT: Pt denies ocular discharge or irritation, otalgia, rhinorrhea, pharyngitis or notable lymphadenopathy. Cardiopulmonary: Pt denies chest pain, SOB, heart palpitations, dyspnea on exertion. Abdominal/GI: Pt denies abdominal pain, n/v/d. : Pt denies dysuria, burning w/ urination, frequency/urgency. Denies new onset urinary or bowel incontinence. MSK: Pt denies myalgia, loss of strength or function in extremities. Neuro: Pt denies new onset weakness, paresthesias. - Related Data Home Medications Medication Instructions Recorded Confirmed Aspirin [Adult Low Dose Aspirin EC] 81 mg PO HS 06/26/16 12/04/17 Atorvastatin [Lipitor] 10 mg PO DAILY 06/26/16 12/04/17 Baclofen [Lioresal] 10 mg PO QID 06/26/16 12/04/17 Metoprolol Tartrate [Lopressor] 25 mg PO BID 06/26/16 12/04/17 LORazepam [Ativan] 0.5 mg PO BID PRN 08/10/16 12/04/17 Ferrous Sulfate [Iron (65 MG 325 mg PO TID 08/10/17 12/04/17 Elemental)] Omeprazole 20 mg PO BID 12/04/17 12/04/17 Previous Rx's Medication Instructions Recorded cloNIDine HCL [Catapres] 0.1 mg PO DAILY tab 08/10/17 Allergies Allergy/AdvReac Type Severity Reaction Status Date / Time Penicillins Allergy Rash/Hives Verified 08/06/18 10:56 Review of Systems ROS Statement: Those systems with pertinent positive or pertinent negative responses have been documented in the HPI. ROS Other: All systems not noted in ROS Statement are negative. Past Medical History Past Medical History: Chest Pain / Angina, GI Bleed, Hyperlipidemia, Hypertension, Osteoarthritis (OA) Additional Past Medical History / Comment(s): Pt recently admitted to [facility] on 06/11/17 with chest discomfort and was found to be anemic- colonoscopy showed small polyp and internal hemorrhoids as source of GI bleed. Other Hx: tobi hand arthritis requiring pain injections, hemmorhoids History of Any Multi-Drug Resistant Organisms: None Reported Past Surgical History: Heart Catheterization Additional Past Surgical History / Comment(s): 2017 Cardiac cath-normal at [facility], 06/2017 colonoscopy.hemmorhoidectomy Past Anesthesia/Blood Transfusion Reactions: No Reported Reaction Additional Past Anesthesia/Blood Transfusion Reaction / Comment(s): Pt has received blood without reaction. Past Psychological History: Anxiety Smoking Status: Former smoker Past Alcohol Use History: Occasional Past Drug Use History: Marijuana - Past Family History Father Family Medical History: Musculoskeletal Disorder, Neurologic Disorder Additional Family Medical History / Comment(s): parkinsons Mother Family Medical History: No Reported History General Exam - General Exam Comments Initial Comments: Constitutional: NAD, AOX3, Pt has pleasant affect. HEENT: NC/AT, trachea midline, neck supple, no lymphadenopathy. Posterior pha rynx non erythematous, without exudates. External ears appear normal, without discharge. Mucous membranes moist. Eyes PERRLA, EOM intact. There is no scleral icterus. No pallor noted. Cardiopulmonary: RRR, no murmurs, rubs or gallops, no JVD noted. Lungs CTAB in anterior and posterior mendez. No peripheral edema. Abdominal exam: Abdomen soft and non-distended. Abdomen non-tender to palpation in all 4 quadrants. Bowel sounds active in LLQ. No hepatosplenomegaly. No ecchymosis Neuro: CN II-XII intact. No nuchal rigidity. No focal deficit, no facial droop. MSK: Cervical spine nontender to palpation. Full active range of motion of cervical spine. No posterior calf tenderness bilaterally, homans sign negative bilaterally. Posterior tibialis and radial pulse +2 bilaterally. Sensation intact in upper and lower extremities. Full active ROM in upper and lower extremities, 5/5 stregnth. Limitations: no limitations Course Vital Signs 08/06/18 08/06/18 08/06/18 10:54 13:12 13:54 Temperature 97.4 F L Pulse Rate 100 71 75 Respiratory 22 18 16 Rate Blood Pressure 160/110 132/94 130/96 O2 Sat by Pulse 100 98 96 Oximetry Medical Decision Making - Medical Decision Making 57-year-old male patient with past medical history of degenerative disc disease and cervical spine presents to ED with neck pain and mild waxing and waning headaches. Patient states that he has chronic pain in his cervical spine, however since that the pain has been worse the last 3 days and has had some mild waxing and waning associated headaches. Patient denies any recent falls or trauma. Patient denies worst headache of life, thunderclap, changes in vision. Patient states that the pain in his cervical spine is in the left paracervical region, states that it is the same pain as he's had in past, however it is worse. Denies any other complaints. Patient vital signs stable, afebrile. Physical exam displayed: Cervical spine nontender to palpation. Full active range of motion of cervical spine. No posterior calf tenderness bilaterally, homans sign negative bilaterally. Posterior tibialis and radial pulse +2 bilaterally. Sensation intact in upper and lower extremities. Full active ROM in upper and lower extremities, 5/[address]th[address] Normal neurologic exam. CT brain and cervical spine not displaying acute process, displayed mild degenerative disc disease. Patient discharged, patient will follow-up with primary care provider in 1-2 days for continued evaluation. Patient returned ER physician worsens in any way. Case discussed with Dr. Hill. Pt not driving home. Disposition Clinical Impression: Cervical strain Disposition: HOME SELF-CARE Condition: Stable Instructions (If sedation given, give patient instructions): Cervical Strain (ED) Additional Instructions: Patient to adhere to previously discussed treatment plan and will take medication(s) as directed. Patient to follow up with PCP in 1-2 days. Patient to return to ED if symptoms do not improve. Follow-up with primary care physician as well as orthopedic consult in 1-2 days. Return to ER if condition worsens. Is patient prescribed a controlled substance at d/c from ED?: No Referrals: Romaine Del Rosario MD [Primary Care Provider] - 1-2 days Kolton Parham DO [Doctor of Osteopathic Medicine] - 1-2 days
--- NOTE | 2018-08-06 13:16 | CT ---
EXAMINATION TYPE: CT brain [facility]o [facility] DATE OF EXAM: 08/06/2018 COMPARISON: None HISTORY: head and neck pain CT DLP: 1215.[address] of the brain was performed. The ventricles, basal cisterns and sulci overlying the cerebral convexities demonstrate mild enlargem ent. There is no evidence for intracranial hemorrhage or sulcal effacement. There is decreased attenuatio n about the periventricular white matter and deep white matter of both cerebral hemispheres, compatib le with chronic small vessel ischemia. No mass effects are seen. If symptoms persist consider MRI. Osseous calvarium is intact. IMPRESSION: 1. Age related atrophic and chronic small vessel ischemic change without acute intracranial process seen at this time. CT Cervical Spine: Unenhanced CT of the cervical spine was performed with bone and soft tissue window settings submitted . Coronal and sagittal reconstruction is obtained. There is normal alignment and prevertebral soft tissues. No evidence for acute cervical fracture . Scattered degenerative disc disease and spondylosis. Biapical scarring. IMPRESSION: 1. No evidence for acute fracture or subluxation of the cervical spine.
[2018-08-06 13:55] VITALS: RESP 16
[2018-08-06] MEDS ORDERED: ACET/COD 300 MG/30 MG STARTER PACK 6 TAB BTL PO STA (14:02)
[2018-08-06 14:50] VITALS: BP 124/92; PULSE 71
== END 2018-08-06 14:47 | disposition home or self-care (01) ==
LOC: EC 10:53
DX: S16.1XXA Strain of muscle, fascia and tendon at neck level, initial encounter (principal); M50.30 Other cervical disc degeneration, unspecified cervical region; R51 Headache; E78.5 Hyperlipidemia, unspecified; I10 Essential (primary) hypertension; D64.9 Anemia, unspecified; M19.041 Primary osteoarthritis, right hand; M19.042 Primary osteoarthritis, left hand; Z87.891 Personal history of nicotine dependence; Z88.0 Allergy status to penicillin; Z79.82 Long term (current) use of aspirin; Z79.899 Other long term (current) drug therapy; Z87.19 Personal history of other diseases of the digestive system; Z95.818 Presence of other cardiac implants and grafts; X58.XXXA Exposure to other specified factors, initial encounter
CPT/HCPCS: 70450; 72125; 99284

== ENCOUNTER → 2018-11-24 | Outpatient (CLI) | payer OTHER ==
[2018-11-24 16:40] LABS: Anti-Smith Ab Interp NEGATIVE (NEGATIVE); Cyclic Citrull Pep IgG Unit <0.5 U/mL; Cyclic Citrullinated Pep IgG NEGATIVE (NEGATIVE); DNA Double-Stranded POSITIVE (NEGATIVE); Scleroderma SC-70 Ab <0.2 AI
[2018-11-25 11:39] LABS: ANA Pattern Homogeneous
== END ==
LOC: LABWHC1 11:40
PROVIDERS: ATTEND Psychiatry & Neurology Pain Medicine
DX: M25.50 Pain in unspecified joint (principal)
CPT/HCPCS: 36415; 83516; 86038; 86039; 86200; 86225; 86235

== ENCOUNTER 2019-03-12 11:36 | Emergency (ER) | payer OTHER ==
[2019-03-12 11:49] VITALS: PULSE 65; RESP 18; TEMP 98.1
[2019-03-12 12:07] VITALS: BP 111/81
--- NOTE | 2019-03-12 12:10 | ED ---
General Adult HPI - General Chief complaint: Recheck/Abnormal Lab/Rx Stated complaint: HYPOTENSION Time Seen by Provider: 03/12/19 11:51 Source: patient, RN notes reviewed, old records reviewed Mode of arrival: ambulatory Limitations: no limitations - History of Present Illness Initial comments: 58-year-old male presents for evaluation of low blood pressure. Patient has history of hypertension. He is currently undergoing several medication changes for hypertension. He's currently taking 25 mg metoprolol twice daily. He has been taking clonidine for some time and this medication is just. Reduced in an attempt to wean off. He is currently taking 0.1 mg of clonidine every third day. He took this medication yesterday morning. He is also on Benzapril 10 mg which she takes at lunchtime daily. This is a new medication. Patient denies symptoms at the time my evaluation. No lightheadedness or dizziness. No chest pain or dyspnea. No abdominal pain. No vomiting or diarrhea. His been eating and drinking normally. He states that yesterday evening he had a measured blood pressure 76 systolic and at that time he did feel somewhat lightheaded. He had a blood pressure reading in the 90s systolic this morning. Upon arousal emergency department he has a normal blood pressure. He is asymptomatic. - Related Data Home Medications Medication Instructions Recorded Confirmed Aspirin [Adult Low Dose Aspirin EC] 81 mg PO HS 06/26/16 12/04/17 Atorvastatin [Lipitor] 10 mg PO DAILY 06/26/16 12/04/17 Baclofen [Lioresal] 10 mg PO QID 06/26/16 12/04/17 Metoprolol Tartrate [Lopressor] 25 mg PO BID 06/26/16 12/04/17 LORazepam [Ativan] 0.5 mg PO BID PRN 08/10/16 12/04/17 Ferrous Sulfate [Iron (65 MG 325 mg PO TID 08/10/17 12/04/17 Elemental)] Omeprazole 20 mg PO BID 12/04/17 12/04/17 Previous Rx's Medication Instructions Recorded cloNIDine HCL [Catapres] 0.1 mg PO DAILY tab 08/10/17 Allergies Allergy/AdvReac Type Severity Reaction Status Date / Time Penicillins Allergy Rash/Hives Verified 03/12/19 11:46 Review of Systems ROS Statement: Those systems with pertinent positive or pertinent negative responses have been documented in the HPI. ROS Other: All systems not noted in ROS Statement are negative. Past Medical History Past Medical History: Chest Pain / Angina, GI Bleed, Hyperlipidemia, Hypertens ion, Osteoarthritis (OA) Additional Past Medical History / Comment(s): Pt recently admitted to [facility] on 06/11/17 with chest discomfort and was found to be anemic- colonoscopy showed small polyp and internal hemorrhoids as source of GI bleed. Other Hx: tobi hand arthritis requiring pain injections, hemmorhoids History of Any Multi-Drug Resistant Organisms: None Reported Past Surgical History: Heart Catheterization Additional Past Surgical History / Comment(s): 2017 Cardiac cath-normal at [facility], 06/2017 colonoscopy.hemmorhoidectomy Past Anesthesia/Blood Transfusion Reactions: No Reported Reaction Additional Past Anesthesia/Blood Transfusion Reaction / Comment(s): Pt has received blood without reaction. Past Psychological History: Anxiety Smoking Status: Former smoker Past Alcohol Use History: Occasional Past Drug Use History: Marijuana - Past Family History Father Family Medical History: Musculoskeletal Disorder, Neurologic Disorder Additional Family Medical History / Comment(s): parkinsons Mother Family Medical History: No Reported History General Exam Limitations: no limitations General appearance: alert, in no apparent distress Head exam: Present: atraumatic, normocephalic Eye exam: Present: normal appearance, PERRL ENT exam: Present: normal exam Neck exam: Present: normal inspection. Absent: tenderness, meningismus Respiratory exam: Present: normal lung sounds bilaterally. Absent: respiratory distress, wheezes Cardiovascular Exam: Present: regular rate, normal rhythm GI/Abdominal exam: Present: soft. Absent: distended, tenderness, guarding, rebound Extremities exam: Present: normal inspection, normal capillary refill, other (Bilateral radial pulses 2+ and symmetric.). Absent: pedal edema Neurological exam: Present: alert, oriented X3, CN II-XII intact, normal gait. Absent: motor sensory deficit Psychiatric exam: Present: normal affect, normal mood Skin exam: Present: warm, dry, intact. Absent: cyanosis, diaphoretic Course Vital Signs 03/12/19 11:46 Temperature 98.1 F Pulse Rate 65 Respiratory 18 Rate Blood Pressure 124/86 O2 Sat by Pulse 95 Oximetry Medical Decision Making - Medical Decision Making 58-year-old male presenting with fluctuating blood pressure. Patient did not take clonidine today. He is not scheduled to take this medication for 2 days. 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 He is given monitor blood pressure at home and discontinue his bouncer pulled today. He will resume Benzapril tomorrow at 5 mg instead of 10 mg. He will continue his metoprolol twice daily. He does have close follow-up with his primary care physician and lieutenant governor. He will monitor blood pressure at home. He will return with any symptoms of lightheadedness, dizziness, chest pain, belly pain, nausea vomiting diarrhea, or fever. Disposition Clinical Impression: Blood pressure check Disposition: HOME SELF-CARE Condition: Fair Instructions (If sedation given, give patient instructions): How to Take a Blood Pressure (ED), Hypotension (ED) Additional Instructions: Patient will monitor blood pressure at home, make recommended medication adjustments, follow with primary care physician and lieutenant governor. Is patient prescribed a controlled substance at d/c from ED?: No Referrals: Romaine Del Rosario MD [Primary Care Provider] - 1-2 days Time of Disposition: 12:09
== END 2019-03-12 12:20 | disposition home or self-care (01) ==
LOC: EC 11:36
DX: Z01.30 Encounter for examination of blood pressure without abnormal findings (principal); I10 Essential (primary) hypertension; E78.5 Hyperlipidemia, unspecified; F41.9 Anxiety disorder, unspecified; Z79.82 Long term (current) use of aspirin; Z79.899 Other long term (current) drug therapy; Z88.0 Allergy status to penicillin; Z87.891 Personal history of nicotine dependence
CPT/HCPCS: 99285

== ENCOUNTER → 2020-07-16 | Outpatient (CLI) | payer OTHER ==
[2020-07-16 19:37] LABS: Basophils # (A) 0.05 X 10*3/uL (0.00-0.10); Basophils % (A) 0.5 %; Eosinophils # (A) 0.42 X 10*3/uL (0.04-0.35); Eosinophils % (A) 4.5 %; HCT 41.7 % (39.6-50.0); HGB 13.7 g/dL (13.0-17.0); Lymphocytes # (A) 2.35 X 10*3/uL (0.90-5.00); Lymphocytes % (A) 25.1 %; MCH 32.3 pg (27.0-32.0); MCHC 32.9 g/dL (32.0-37.0); MCV 98.3 fL (80.0-97.0); Monocytes # (A) 0.75 X 10*3/uL (0.20-1.00); Neutrophils # (A) 5.72 X 10*3/uL (1.80-7.70); Neutrophils % (A) 61.2 %; Platelet Count 198 X 10*3/uL (140-440); RBC 4.24 X 10*6/uL (4.40-5.60); RDW 13.4 % (11.5-14.5); WBC 9.36 X 10*3/uL (4.50-10.00)
[2020-07-16 20:44] LABS: Erythrocyte Sedimentation Rate 24 mm/Hr (0-20)
== END | disposition home or self-care (01) ==
LOC: LABWHC1 12:22
PROVIDERS: ATTEND Psychiatry & Neurology Pain Medicine
DX: M06.9 Rheumatoid arthritis, unspecified (principal)
CPT/HCPCS: 36415; 85025; 85652; 86140

== ENCOUNTER → 2023-08-17 | Outpatient (CLI) | payer OTHER ==
--- NOTE | 2023-08-17 09:16 | US ---
EXAMINATION TYPE: US liver DATE OF EXAM: 08/17/2023 COMPARISON: 08/01/2016. CLINICAL INDICATION: Male, 62 years old with history of N42.98 OTHER SPECIFIED DISORDERS OF PROSTATE; Elevated liver enzymes TECHNIQUE: Multiple sonographic images of the right upper quadrant are obtained. FINDINGS: EXAM MEASUREMENTS: Liver Length: 16.1 cm Gallbladder Wall: 0.2 cm CBD: 0.4 cm Right Kidney: 9.8 x 4.7 x 4.9 cm ENTRY LEVEL NOTES: Technical limitations due to large amount of overlying bowel gas Pancreas: Obscured by bowel gas Liver: attenuating, heterogenous , focal fatty sparing next to gallbladder fossa. Gallbladder: polyp = 0.3cm Evidence for sonographic Bailey's sign: no CBD: wnl Right Kidney: no evidence of hydronephrosis IMPRESSION: 1. No evidence for acute process. 2. Small gallbladder polyp measuring 3 mm suggested. Follow-up in 6 months recommended to ensure sta bility. 3. Hepatic steatosis with focal fatty sparing.
--- NOTE | 2023-08-17 09:17 | US ---
EXAMINATION TYPE: US prostate transrectal DATE OF EXAM: 08/17/2023 COMPARISON: NONE CLINICAL INDICATION: Male, 62 years old with history of N42.98 OTHER SPECIFIED DISORDERS OF PROSTATE; difficulty urinating This examination was performed using the transrectal probe. EXAM MEASUREMENTS: Gland Size: 3.9 x 2.1 x 4.3cm Volume: 18.5ml Predicted PSA: 2.22 Actual PSA (if available):0.31 Heterogeneous gland. No evidence of discrete nodule within peripheral zone at this time IMPRESSION: No suspicious lesions. MRI is more sensitive for the detection of clinically significant prostate catalino nocarcinoma. Predicted PSA = volume x 0.12 ng/ml Calculated Volume = 0.5236 x L x W x H
== END | disposition home or self-care (01) ==
LOC: RADUSWWP 07:02
PROVIDERS: ATTEND Family Medicine
DX: N42.89 Other specified disorders of prostate (principal); R94.5 Abnormal results of liver function studies; K82.4 Cholesterolosis of gallbladder; K76.0 Fatty (change of) liver, not elsewhere classified
CPT/HCPCS: 76705; 76872

== ENCOUNTER → 2024-02-29 | Outpatient (CLI) | payer OTHER ==
--- NOTE | 2024-02-29 16:15 | US ---
EXAMINATION TYPE: US gallbladder DATE OF EXAM: 02/29/2024 COMPARISON: 08/17/2023. CLINICAL INDICATION: Male, 63 years old with history of K82.4 CHOLESTEROLOSIS OF GALLBLADDER; polyp g b TECHNIQUE: Grayscale and color Doppler imaging of the right upper quadrant was performed. FINDINGS: EXAM MEASUREMENTS: Liver Length: 17.4 cm Gallbladder Wall: .2 cm CBD: .2 cm Right Kidney: 10.2 x 4.7 x 5.0 cm POLICE ARTIST NOTES: Pancreas: Obscured by bowel gas Liver: Increased attenuation Gallbladder: Polyps seen 3mm, similar to prior Evidence for sonographic Bailey's sign: No CBD: wnl Right Kidney: No hydronephrosis or masses seen IMPRESSION: 1. Stable Gallbladder polyp measuring 3 mm dating back to 08/17/2023. Consider follow-up in one year. 2. Hepatic steatosis. [facility], , 02/29/2024 4:12 PM
== END | disposition home or self-care (01) ==
LOC: RADUSWWP 09:24
PROVIDERS: ATTEND Family Medicine
DX: K82.4 Cholesterolosis of gallbladder (principal); K76.0 Fatty (change of) liver, not elsewhere classified
CPT/HCPCS: 76705